=== PATIENT | female | born 1945 | race Caucasian/White ===

== ENCOUNTER 2017-03-30 08:03 | Day surgery (SDC) | payer MEDICARE ==
[~2017-03-30 08:03] MED LIST: Acetaminophen TAB* 325 MG PO PRN; Buffered Lidocaine 0.9% SYRIN* 5 ML/SYR SYRINGE INTRADERM ONE
[2017-03-30] MEDS ORDERED: Midazolam* 1 MG/ML 2 ML VIAL (2 MG) ONE (09:02)
[2017-03-30] MEDS ORDERED: fentaNYL* 50 MCG/ML 2 ML VIAL (100 MCG VIAL) ONE (09:02)
[2017-03-30 10:48] VITALS: BP 117/58
--- NOTE | 2017-03-30 10:52 | OP ---
DATE OF OPERATION: 03/30/2017. DATE OF : 1945. SURGEON: Praveen Horton M.D. PREOPERATIVE DIAGNOSIS: Cataract left eye. POSTOPERATIVE DIAGNOSIS: Cataract left eye. OPERATIVE PROCEDURE: Phacoemulsification left eye with IOL. PROCEDURE: The patient was brought to the operating room after being given 1/2% Alcaine with epinep hrine drops in the preoperative area. The eye was prepped and draped in the usual sterile fashion. Sterile drape and eyelid speculum were placed. Again, topical 1/2% Alcaine with epinephrine was gi eleuterio. A paracentesis incision was made at the 3 o'clock position with the No.75 blade. Clear cornea incision 2.2 x 2.2-mm was created at the 6 o'clock position starting at the anterior limbus using t he 2.2-mm keratome. The anterior chamber was irrigated with 0.4 mL of 1% non-preservative intracame ral lidocaine and filled with DisCoVisc. A capsulorrhexis was completed using the cystotome and the Utrata forceps. Hydrodissection was performed with balanced salt solution. The lens nucleus was re moved with the Phacoemulsification handpiece without incident. Cortex was removed with the irrigati on-aspiration handpiece. The capsular bag was re-inflated using DisCoVisc and an SN60WF 19.5 implan t was inserted with the shooter. The irrigation-aspiration handpiece was used to remove all residua l DisCoVisc. The eye was refilled with balanced salt solution and the wound checked and found to be watertight. Topical Maxitrol drops were given. [id number]/[facility] #: [id number]
[2017-03-30] MEDS ORDERED: Lidocaine 2% EPI 1:200000 MPF* 20 ML VIAL ONE (13:27)
[2017-03-30] MEDS ORDERED: Cyclopentolate 1% OPTH.SOL* 2 ML BTL ONE (13:27)
[2017-03-30] MEDS ORDERED: Povidone Iodine 5% OPTH* 30 ML BTL ONE (13:27)
[2017-03-30] MEDS ORDERED: Phenylephrine 2.5% OPTH.SOL* 2 ML BTL ONE (13:27)
[2017-03-30] MEDS ORDERED: Proparacaine 0.5% OPHTH.SOL* 15 ML BTL ONE (13:27)
[2017-03-30] MEDS ORDERED: acetaZOLAMIDE TAB* 250 MG ONE (13:27)
[2017-03-30] MEDS ORDERED: Flurbiprofen 0.03% OPTH.SOL* 2.5 ML BTL ONE (13:27)
[2017-03-30] MEDS ORDERED: Buffered Lidocaine 0.9% SYRIN* 5 ML/SYR SYRINGE ONE (13:27)
[2017-03-30] MEDS ORDERED: Neomycin/Polymy/Dex OPTH.SUSP* MAXITROL 0.1% 5 ML ONE (13:27)
[2017-03-30] MEDS ORDERED: Lidocaine 1% MPF* 2 ML VIAL ONE (13:27)
== END 2017-03-30 10:49 | disposition home or self-care (01) ==
LOC: OREAST 08:03
PROVIDERS: ATTEND Specialist
DX: H25.12 Age-related nuclear cataract, left eye (principal); E11.9 Type 2 diabetes mellitus without complications; Z79.84 Long term (current) use of oral hypoglycemic drugs; J44.9 Chronic obstructive pulmonary disease, unspecified; I11.0 Hypertensive heart disease with heart failure; I50.20 Unspecified systolic (congestive) heart failure; E78.5 Hyperlipidemia, unspecified
CPT/HCPCS: A9270-GY; J2250; J3010; V2632

== ENCOUNTER 2018-09-11 18:26 | Inpatient (IN) | payer MEDICARE ==
[2018-09-11] MEDS ORDERED: NS 0.9% 500 ML* 500 ML IV ONE (19:00)
[2018-09-11] MEDS ORDERED: Ondansetron INJ* 2 MG/ML VIAL IV ONE (19:00)
[2018-09-11 19:21] LABS: ABS Basophils 0.1 10^3/ul (0-0.2); ABS Eosinophils 0 10^3/ul (0-0.6); ABS Lymphocytes 0.8 10^3/ul (1.0-4.8); ABS Monocytes 0.2 10^3/ul (0-0.8); ABS Neutrophils 9.9 10^3/ul (1.5-7.7); ABS Nucleated RBC 0 10^3/ul; Eosinophil % 0.1 %; Hematocrit 40 % (35-47); Hemoglobin 13.2 g/dl (12.0-16.0); Mean Corpuscular HGB Conc 33 g/dl (31-36); Mean Corpuscular Hemoglobin 28 pg (27-31); Mean Corpuscular Volume 85 fL (80-97); Mean Platelet Volume 8.5 fL (7.4-10.4); Nucleated Red Blood Cells % 0; Platelet Count 208 10^3/ul (150-450); Red Blood Count 4.77 10^6/ul (4.00-5.40); Red Cell Distribution Width 15 % (10.5-15)
[2018-09-11 19:35] LABS: Albumin 4.2 g/dL (3.2-5.2); Albumin/Globulin Ratio 1.2 (1-3); BUN/Creatinine Ratio 34.8 (8-20); C Reactive Protein 16.57 mg/L (<8.01); Calcium 9.8 mg/dL (8.6-10.3); EGFR Non-African American 62.2 (>60); Globulin 3.4 g/dL (2-4); Potassium 3.9 mmol/L (3.5-5.0); Total Bilirubin 0.3 mg/dL (0.2-1.0); Total Protein 7.6 g/dL (6.4-8.9)
--- NOTE | 2018-09-11 20:45 | ED ---
Abdominal Pain/Female - HPI Summary HPI Summary: Patient complains of sudden onset nausea vomiting, bilateral lower abdominal pain, bilateral lower back pain starting this morning. Abdominal pain described as constant, 10 out of 10. Back pain described as constant, 9 out of 10. 7 episodes of vomiting today. Unable to tolerate by mouth fluids or food. Denies trauma, fever, cough, sore throat, CP, SOB, diarrhea, change in urine, change in BM. Medical history is DM,, COPD, CHF, arthritis, periumbilical hernia. Abdominal surgical history is none. Patient states she took her medications today, and vomited about an hour later. DM controlled without insulin, using metformin, bydureon, acarbose. Patient states allergic to codeine and morphine, makes her hallucinate. Patient states she took Tylenol at home with no relief. Patient on O2 at 2L 24 7. - History of Current Complaint Chief Complaint: EDAbdPain Stated Complaint: VOMITING/BACK PAIN Time Seen by Provider: 09/11/18 18:57 Hx Obtained From: Patient Onset/Duration: Sudden Onset Timing: Constant Severity Initially: Severe Severity Currently: Severe Pain Intensity: 9 Pain Scale Used: 0-10 Numeric Location: Discrete At: LUQ, Discrete At: LLQ, Suprapubic Radiates: Yes Radiates to: Back Character: Sharp, Cramping Aggravating Factor(s): Movement Alleviating Factor(s): Nothing Associated Signs and Symptoms: Positive: Back Pain, Decreased Appetite, Nausea, Vomiting Allergies/Adverse Reactions: Allergies Allergy/AdvReac Type Severity Reaction Status Date / Time gadobenic acid Allergy Rash And Verified 09/11/18 19:47 [From Multihance] Itching Iodinated Contrast- Oral and Allergy Hives Verified 09/11/18 18:52 IV Dye codeine AdvReac Hallucinati Verified 09/11/18 19:47 ons morphine AdvReac Hallucinati Verified 09/11/18 19:47 ons prednisone AdvReac Shakes Verified 09/11/18 19:47 tetracycline AdvReac Shakes Verified 09/11/18 19:47 PMH/Surg Hx/FS Hx/Imm Hx Endocrine/Hematology History: Reports: Hx Diabetes - ON DAILY MEDS, Hx Anemia Denies: Hx Thyroid Disease Cardiovascular History: Reports: Hx Congestive Heart Failure - 09/2013, NO Sx SINCE, Hx Hypercholesterolemia, Hx Hypertension, Other Cardiovascular Problems/ Disorders - Hx HTN Denies: Hx Pacemaker/ICD Respiratory History: Reports: Hx Asthma - PRN INHALER, USE OXYGEN 2L NC AT HOME , Hx Chronic Obstructive Pulmonary Disease (COPD), Hx Pneumonia, Hx Sleep Apnea - CPAP, Other Respiratory Problems/Disorders - copd, home 02 GI History: Denies: Hx Ulcer, Other GI Disorders History: Reports: Other Problems/Disorders - Hx intermittent incontinence Musculoskeletal History: Reports: Hx Arthritis - RT KNEE, Hx Orthopedic Injury - RIGHT HUMERAL FRACTURE WITH REPAIR, Other Musculoskeletal History - cellulitus le Sensory History: Reports: Hx Cataracts - BILATERAL Denies: Hx Contacts or Glasses, Hx Hearing Aid Opthamlomology History: Reports: Hx Cataracts - BILATERAL Denies: Hx Contacts or Glasses Neurological History: Denies: Other Neuro Impairments/Disorders Psychiatric History: Reports: Hx Anxiety - prn meds, Hx Depression Denies: Hx Panic Disorder - Cancer History Hx Chemotherapy: No Hx Radiation Therapy: No - Surgical History Surgery Procedure, Year, and Place: 2004 Carpel tunnel bilat hands. 2008 &2016 Cataract surgery right eye & LT [facility]. 03/2013-[facility] - right arm internal fixation s/p humeral fx. AND EXTERNAL STITCHES ON HEAD -FROM FALL Hx Anesthesia Reactions: No - Immunization History Date of Tetanus Vaccine: Unk Date of Influenza Vaccine: 07/01 Infectious Disease History: Yes Infectious Disease History: Reports: Hx Clostridium Difficile, Hx of Known/ Suspected MRSA - pt states she had MRSA at [facility] Denies: Hx Hepatitis, Hx Human Immunodeficiency Virus (HIV), Traveled Outside the in Last 30 Days - Social History Alcohol Use: None Substance Use Type: Reports: None Smoking Status (MU): Never Smoked Tobacco Have You Smoked in the Last Year: No Review of Systems Constitutional: Negative Eyes: Negative ENT: Negative Cardiovascular: Negative Respiratory: Negative Positive: Abdominal Pain, Vomiting, Nausea Genitourinary: Negative Musculoskeletal: Negative Skin: Negative Neurological: Negative Psychological: Normal All Other Systems Reviewed And Are Negative: Yes Physical Exam - Summary Physical Exam Summary: Tenderness to palpation of abdomen in left and right lower quadrants as well as suprapubically. Tender to palpation right upper quadrant with positive Orourke' s. No tenderness to palpation of lower back bilaterally. Physical exam otherwise unremarkable. Sounds clear to auscultation bilaterally. Patient has baseline peripheral edema. Triage Information Reviewed: Yes Vital Signs On Initial Exam: Initial Vitals Temp Pulse Resp BP Pulse Ox 97.6 F 94 24 153/60 95 09/11/18 18:30 09/11/18 18:30 09/11/18 18:30 09/11/18 18:30 09/11/18 18:30 Vital Signs Reviewed: Yes Appearance: Positive: Well-Appearing Skin: Positive: Warm Head/Face: Positive: Normal Head/Face Inspection Eyes: Positive: Normal ENT: Positive: Normal ENT inspection Neck: Positive: Supple Respiratory/Lung Sounds: Positive: Clear to Auscultation Cardiovascular: Positive: Normal Abdomen Description: Positive: Other: Musculoskeletal: Positive: Normal Neurological: Positive: Normal Psychiatric: Positive: Normal AVPU Assessment: Alert - Emanuel Coma Scale Best Eye Response: 4 - Spontaneous Best Motor Response: 6 - Obeys Commands Best Verbal Response: 5 - Oriented Coma Scale Total: 15 Diagnostics - Vital Signs Vital Signs Temp Pulse Resp BP Pulse Ox 09/11/18 19:06 58 143/66 97 09/11/18 19:00 57 93 09/11/18 18:48 53 143/66 97 09/11/18 18:46 55 94 09/11/18 18:30 97.6 F 94 24 153/60 95 - Laboratory Lab Results: Lab Results 09/11/18 09/11/18 09/11/18 Range/Units 19:12 19:12 19:12 WBC 11.0 H (3.5-10.8) 10^3/ul RBC 4.77 (4.00-5.40) 10^6/ul Hgb 13.2 (12.0-16.0) g/dl Hct 40 (35-47) % MCV 85 (80-97) fL MCH 28 (27-31) pg MCHC 33 (31-36) g/dl RDW 15 (10.5-15) % Plt Count 208 (150-450) 10^3/ul MPV 8.5 (7.4-10.4) fL Neut % (Auto) 90.1 % Lymph % (Auto) 7.0 % [place] % (Auto) 2.1 % Eos % (Auto) 0.1 % Baso % (Auto) 0.7 % Absolute Neuts (auto) 9.9 H (1.5-7.7) 10^3/ul Absolute Lymphs (auto) 0.8 L (1.0-4.8) 10^3/ul Absolute Monos (auto) 0.2 (0-0.8) 10^3/ul Absolute Eos (auto) 0 (0-0.6) 10^3/ul Absolute Basos (auto) 0.1 (0-0.2) 10^3/ul Absolute Nucleated RBC 0 10^3/ul Nucleated RBC % 0 VBG pH (7.32-7.43) VBG pCO2 (41-51) mmHg VBG pO2 (35-45) mmHg VBG HCO3 (24-28) mmol/L VBG O2 Saturation (70-80) % VBG Base Excess (0.0-4.0) mmol/L Sodium 139 (135-145) mmol/L Potassium 3.9 (3.5-5.0) mmol/L Chloride 100 L (101-111) mmol/L Carbon Dioxide 26 (22-32) mmol/L Anion Gap 13 H (2-11) mmol/L BUN 31 H (6-24) mg/dL Creatinine 0.89 (0.51-0.95) mg/dL Est GFR ( Amer) 75.2 (>60) Est GFR (Non-Af Amer) 62.2 (>60) BUN/Creatinine Ratio 34.8 H (8-20) Glucose 207 H (70-100) mg/dL Lactic Acid 3.7 H* (0.5-2.0) mmol/L Calcium 9.8 (8.6-10.3) mg/dL Total Bilirubin 0.30 (0.2-1.0) mg/dL AST 18 (13-39) U/L ALT 14 (7-52) U/L Alkaline Phosphatase 72 (34-104) U/L C-Reactive Protein 16.57 H (<8.01) mg/L Total Protein 7.6 (6.4-8.9) g/dL Albumin 4.2 (3.2-5.2) g/dL Globulin 3.4 (2-4) g/dL Albumin/Globulin Ratio 1.2 (1-3) Lipase 13 (11.0-82.0) U/L 12/24/18 Range/Units 20:18 WBC (3.5-10.8) 10^3/ul RBC (4.00-5.40) 10^6/ul Hgb (12.0-16.0) g/dl Hct (35-47) % MCV (80-97) fL MCH (27-31) pg MCHC (31-36) g/dl RDW (10.5-15) % Plt Count (150-450) 10^3/ul MPV (7.4-10.4) fL Neut % (Auto) % Lymph % (Auto) % [place] % (Auto) % Eos % (Auto) % Baso % (Auto) % Absolute Neuts (auto) (1.5-7.7) 10^3/ul Absolute Lymphs (auto) (1.0-4.8) 10^3/ul Absolute Monos (auto) (0-0.8) 10^3/ul Absolute Eos (auto) (0-0.6) 10^3/ul Absolute Basos (auto) (0-0.2) 10^3/ul Absolute Nucleated RBC 10^3/ul Nucleated RBC % VBG pH 7.31 L (7.32-7.43) VBG pCO2 54 H (41-51) mmHg VBG pO2 < 38.0 (35-45) mmHg VBG HCO3 23.8 L (24-28) mmol/L VBG O2 Saturation 56.3 L (70-80) % VBG Base Excess 0.0 (0.0-4.0) mmol/L Sodium (135-145) mmol/L Potassium (3.5-5.0) mmol/L Chloride (101-111) mmol/L Carbon Dioxide (22-32) mmol/L Anion Gap (2-11) mmol/L BUN (6-24) mg/dL Creatinine (0.51-0.95) mg/dL Est GFR ( Amer) (>60) Est GFR (Non-Af Amer) (>60) BUN/Creatinine Ratio (8-20) Glucose (70-100) mg/dL Lactic Acid (0.5-2.0) mmol/L Calcium (8.6-10.3) mg/dL Total Bilirubin (0.2-1.0) mg/dL AST (13-39) U/L ALT (7-52) U/L Alkaline Phosphatase (34-104) U/L C-Reactive Protein (<8.01) mg/L Total Protein (6.4-8.9) g/dL Albumin (3.2-5.2) g/dL Globulin (2-4) g/dL Albumin/Globulin Ratio (1-3) Lipase (11.0-82.0) U/L Result Diagrams: 09/11/18 19:12 09/11/18 19:12 Lab Statement: Any lab studies that have been ordered have been reviewed, and results considered in the medical decision making process. - CT ab/pel wo CT Interpretation Completed By: Radiologist Summary of CT Findings: Large left paracentral ventral hernia containing fluid and a partially dilated segment of transverse colon with possible areas of pneumatosis. Findings consistent with coagulation. No evidence of perforation. Transverse colonic obstruction at the level of large ventral hernia containing segment of transverse colon with possible pneumatosis no evidence of perforation cholelithiasis. No evidence of cholecystitis. Abdominal Pain Fem Course/Dx - Course Course Of Treatment: Patient complains of sudden onset nausea vomiting, bilateral lower abdominal pain, bilateral lower back pain starting this morning. Abdominal pain described as constant, 10 out of 10. Back pain described as constant, 9 out of 10. 7 episodes of vomiting today. Unable to tolerate by mouth fluids or food. Denies trauma, fever, cough, sore throat, CP , SOB, diarrhea, change in urine, change in BM. Medical history is DM,, COPD, CHF, arthritis, periumbilical hernia. Abdominal surgical history is none. Patient states she took her medications today, and vomited about an hour later. DM controlled without insulin, using metformin, bydureon, acarbose. Patient states allergic to codeine and morphine, makes her hallucinate. Patient states she took Tylenol at home with no relief. Patient on O2 at 2L 24 7. Physical exam:Tenderness to palpation of abdomen in left and right lower quadrants as well as suprapubically. Tender to palpation right upper quadrant with positive Orourke's. No tenderness to palpation of lower back bilaterally. Physical exam otherwise unremarkable. Sounds clear to auscultation bilaterally. Patient has baseline peripheral edema. Patient initially refused morphine orthopedics due to tendency to hallucinate on these. Patient returned Tylenol. Advised patient toradol not a good option considering possible need for surgery, history of hypertension. Patient later asked for half dose of morphine. Vital signs within normal limits and stable. WBC 11.0. PH 7.31 with likely respiratory acidosis. Lactic 0.7. BUN/creatinine ratio of 34 at patient baseline. Anion gap 13. Glucose 207. Ultrasound gallbladder negative for acute process. CT abdomen pelvis without contrast positive for carcinoid hernia , bowel obstruction with possible pneumatosis. [place] fluids administered. Pending evaluation by surgery. - Diagnoses Provider Diagnoses: Incarcerated hernia, Bowel obstruction, UTI (urinary tract infection) Discharge - Sign-Out/Discharge Documenting (check all that apply): Patient Departure - Discharge Plan Condition: Stable Disposition: ADMITTED TO [facility] Referrals: Aquiles Wilson DO [Primary Care Provider] - - Billing Disposition and Condition Condition: STABLE Disposition: Admitted to [facility]
[2018-09-11] MEDS ORDERED: Morphine VIAL* 10 MG/ML 1 ML VIAL IV ONE ×2 (20:47→21:31)
[2018-09-11] MEDS ORDERED: Morphine VIAL* 4 MG/ML VIAL (1 ml vial) IV ONE ×2 (20:48→21:33)
[2018-09-11 20:53] LABS: Urine Appearance Cloudy; Urine Bacteria 1+ (Absent); Urine Bilirubin Negative (Negative); Urine Blood Negative (Negative); Urine Color Amber; Urine Glucose Negative (Negative); Urine Ketones Negative (Negative); Urine Nitrite Negative (Negative); Urine Protein 2+(100 mg/dL) (Negative); Urine Red Blood Cell Trace(0-2/hpf) (Absent); Urine Specific Gravity 1.025 (1.010-1.030); Urine Urobilinogen Negative (Negative); Urine White Blood Cell 3+(>20/hpf) (Absent)
[2018-09-11] MEDS ORDERED: NS 0.9% 1000 ML* 1,000 ML IV ONE (21:07)
[2018-09-11] MEDS ORDERED: Piperacillin/Tazobac ADVAN(*) 3.375 GM in NS 0.9% 100 ML* 100 ML IVPB ONE (21:07)
[2018-09-11] MEDS ORDERED: Morphine VIAL* 4 MG/ML VIAL (1 ml vial) ONE (21:32)
[2018-09-11] MEDS ORDERED: Midazolam* 1 MG/ML 5 ML VIAL (5 MG) ONE (22:24)
[2018-09-11] MEDS ORDERED: Atracurium* 10 MG/ML 10 ML VIAL ONE (22:24)
[2018-09-11] MEDS ORDERED: KETAMINE HCL* 50 MG/ML 10 ML VIAL ONE (22:24)
[2018-09-11] MEDS ORDERED: fentaNYL* 50 MCG/ML 5 ML VIAL (250 MCG VIAL) ONE (22:24)
[2018-09-11] MEDS ORDERED: ceFAZolin 2 GM PREMIX in ORs 2 GM/50 ML BAG IVPB ONE (22:46)
[2018-09-11] MEDS ORDERED: ceFAZolin 1 GM ADVAN(*) 1 GM ADDV.VIAL IVPB ONE (22:46)
[2018-09-11] MEDS ORDERED: Heparin VIAL(*) 5000 UNITS/ML VIAL (FIVE THOUSAND) ONE (22:53)
[2018-09-11] MEDS: Heparin VIAL(*) 5000 UNITS/ML VIAL (FIVE THOUSAND) SUBCUT SCH (23:00)
[2018-09-11] MEDS ORDERED: Insulin REGULAR(*) 1 UNITS UNIT ONE ×2 (23:40→23:50)
[2018-09-11] MEDS ORDERED: Bupivacaine 0.25% EPI 200,000* 30 ML SDV ONE (23:40)
[2018-09-12] MEDS ORDERED: PROCHLORPERAZINE INJ 5 MG/ML 2 ML VIAL IV PRN (00:14)
[2018-09-12] MEDS ORDERED: fentaNYL* 50 MCG/ML 2 ML VIAL (100 MCG VIAL) IV PRN (00:14)
[2018-09-12] MEDS ORDERED: HYDROmorphone INJ1* 1 MG/ML SYRINGE IV PRN (00:14)
[2018-09-12] MEDS ORDERED: Naloxone* 0.4 MG/ML 1 ML VIAL IV PRN (00:14)
[2018-09-12] MEDS ORDERED: DiMENhydriNATE IV* 50 MG/ML VIAL IV PUSH PRN (00:14)
[2018-09-12] MEDS ORDERED: Phenylephrine INJ* 10 MG/ML 1 ML VIAL (10 MG) ONE (00:37)
[2018-09-12] MEDS ORDERED: Norepinephrine VIAL* 1 MG/ML 4 ML VIAL ONE (00:37)
[2018-09-12] MEDS ORDERED: Propofol* 10 MG/ML 20 ML BTL ONE (00:37)
[2018-09-12] MEDS ORDERED: Neostigmine Methylsulfate* 1 MG/ML 10 ML VIAL (1 mg/ml) ONE (00:37)
[2018-09-12] MEDS ORDERED: Succinylcholine* 20 MG/ML 10 ML VIAL ONE (00:37)
[2018-09-12] MEDS ORDERED: Ondansetron INJ* 2 MG/ML VIAL ONE (00:37)
[2018-09-12] MEDS ORDERED: PROCHLORPERAZINE INJ 5 MG/ML 2 ML VIAL ONE (00:37)
[2018-09-12] MEDS ORDERED: Glycopyrrolate IV* 0.2 MG/ML 1 ML VIAL ONE (00:37)
[2018-09-12] MEDS ORDERED: Ketorolac INJ* 15 MG/ML 1 ML VIAL IV PUSH PRN (01:11)
[2018-09-12] MEDS ORDERED: Ondansetron INJ* 2 MG/ML VIAL IV PRN (01:11)
--- NOTE | 2018-09-12 01:59 | HP ---
CC: Tim Fitzpatrick MD; Dr. Aquiles Wilson HISTORY AND PHYSICAL: DATE OF ADMISSION: 09/11/18 CHIEF COMPLAINT: Abdominal pain, nausea and vomiting. HISTORY: Ms. Menendez is a 73-year-old female who has had a known ventral hernia for many years, who earlier today had onset of increasing abdominal pain, nausea and vomiting. This got worse through until she apparently presented to the emergency room. She had no antecedent accident, injury, or trauma and has otherwise been in her usual state of health. PAST MEDICAL HISTORY: Significant for: 1. Diabetes. 2. Bout of CHF in the past. 3. COPD. She uses home oxygen. 4. She has morbid obesity and some anxiety. 5. She also has a history of some antral gastritis and anemia in the past that has resolved. PAST SURGICAL HISTORY: Previous surgeries include: 1. Cataracts. 2. Carpal tunnel. 3. Right humeral fracture. 4. She has never had abdominal surgery. MEDICATIONS: Include: 1. Metformin 1000 mg p.o. q.a.m., 1500 mg p.o. q.p.m. 2. Albuterol inhaler two puffs q.4 p.r.n. 3. Prozac 40 mg p.o. daily. 4. Tylenol 325 p.o. q.4 p.r.n. 5. Xyzal 5 mg p.o. q.a.m. 6. Lasix 20 mg p.o. q.a.m. 7. Precose 100 mg p.o. t.i.d. 8. Multivitamin one p.o. daily. 9. Vitamin D 1000 units p.o. daily. 10. Bydureon 2 mg daily. ALLERGIES: Include IODINATED CONTRAST and TETRACYCLINE. She has also had some hallucinations from M ORPHINE and CODEINE. FAMILY HISTORY: Noncontributory. No bleeding tendencies or anesthesia reactions. SOCIAL HISTORY: She is here with her daughter. She is . She is a nonsmoker and nondrinker. Does not use any drugs or illicit substances. REVIEW OF SYSTEMS: Multisystem review reveals history of congestive heart failure. She had volume ov erload and needed acute Lasix about 6 years ago. She says they got 70 pounds off of her from taking off fluid. She has been on Lasix ever since and has not had any recurrences. She does have a histor y of COPD, although she has not been a smoker. She has been on inhalers as well. She has diabetes a nd is on medications for that. She has never had thyroid disease. She has never had heart attack, c hest pain, angina pain or the like. She has a history of antral gastritis, had anemia in the past fr om that, but that resolved with medication and she has been fine since. She has not had any hepatobi liary disease. There is no history of kidney stones or urinary problems or gynecologic problems. e does have a history of anxiety and depression. She has no neuromuscular problems. She does have t he carpal tunnel and humeral surgery as noted above. She does not have much exercise tolerance and h as a hard time walking up a flight of stairs without getting very winded. She does use oxygen at [facility]. PHYSICAL EXAMINATION GENERAL: She is a well-developed, well-nourished morbidly obese female consistent with stated age. She does look uncomfortable. VITAL SIGNS: Temperature is 97.3, pulse 59 and regular, respirations 18 and unlabored, O2 saturation 98%, blood pressure is 147/73. She is 5 feet 3 inches, 286 pounds with a BMI of 51. NECK: Supple without any adenopathy. LUNGS: Clear bilaterally. Sounds are somewhat distant. HEART: Regular. No abnormal sounds. ABDOMEN: Morbidly obese. There is a melon-sized ventral hernia just a little to the left and below the umbilicus. This is moderately tender and despite extensive manipulation, I am unable to get it r educed. There are no scars noted. EXTREMITIES: Extremities are quite obese, little bit of chronic edema. No cellulitis or inflammatio n. SKIN: Warm and well perfused. She is not diaphoretic. She is not jaundiced. DIAGNOSTIC STUDIES/LAB DATA: Laboratory studies show white blood count at 11,000 with normal hemogl obin, normal differential. Her electrolytes are relatively normal. She does have blood sugar elevat ed at 207. Her lactic acid is 3.7. Her liver chemistries are normal. Renal function is normal. Ur inalysis shows some white blood cells, but not very impressive. She has had a CT scan of the abdomen , which shows a large ventral hernia, which by my estimation is at least 20 cm across and is causing obstruction of the transverse colon. The defect appears to be approximately 5 cm across and is just a little below into the left of the umbilicus. There is some evidence of pneumatosis in the bowel wa ll. There is no portal venous air and no free fluid. There is cholelithiasis without evidence of ch olecystitis. IMPRESSION AND PLAN: Morbidly obese female with multiple comorbidities with incarcerated ventral her cristin with large bowel obstruction. I have discussed the options with her and I think the only viable option here is to repair the hernia probably with mesh as an emergent surgery. She understands that this is with substantial risk given her comorbidities, but that there are no other options that will likely prevent the bowel from going on to strangulation and ultimate sepsis. So, I recommend that we go to the operating room tonight. She understands the procedure, the rationale, the risks and expected recovery and agrees to proceed in the fashion outlined. I have discussed the case with the hospitalist service, who will be taken c are of her medical care throughout the hospitalization. [id number]/[facility] [place] #: [id number]
[2018-09-12 05:54] LABS: ABS Basophils 0 10^3/ul (0-0.2); ABS Eosinophils 0 10^3/ul (0-0.6); ABS Lymphocytes 0.8 10^3/ul (1.0-4.8); ABS Monocytes 0.9 10^3/ul (0-0.8); ABS Neutrophils 16.5 10^3/ul (1.5-7.7); ABS Nucleated RBC 0 10^3/ul; Eosinophil % 0 %; Hematocrit 38 % (35-47); Hemoglobin 12.5 g/dl (12.0-16.0); Lymphocyte % 4.4 %; Mean Corpuscular HGB Conc 33 g/dl (31-36); Mean Corpuscular Hemoglobin 28 pg (27-31); Mean Corpuscular Volume 86 fL (80-97); Mean Platelet Volume 8.5 fL (7.4-10.4); Nucleated Red Blood Cells % 0.1; Platelet Count 198 10^3/ul (150-450); Red Blood Count 4.47 10^6/ul (4.00-5.40); Red Cell Distribution Width 15 % (10.5-15); White Blood Count 18.2 10^3/ul (3.5-10.8)
[2018-09-12] MEDS: HYDROmorphone INJ* 0.5 MG/0.5 ML SYRINGE IV PRN ×3 (05:58→21:17)
[2018-09-12] MEDS: Heparin VIAL(*) 5000 UNITS/ML VIAL (FIVE THOUSAND) SUBCUT SCH ×3 (05:58→21:18)
[2018-09-12 06:08] LABS: BUN/Creatinine Ratio 35.8 (8-20); Calcium 8.8 mg/dL (8.6-10.3); EGFR Non-African American 57.7 (>60); Potassium 4.2 mmol/L (3.5-5.0)
[2018-09-12] MEDS: Lactated Ringers 1000 ML Bag* 1,000 ML IV SCH ×2 (08:08→18:24)
--- NOTE | 2018-09-12 08:23 | CONSULT ---
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 pt also had n/v. came for eval because her pain has been excruciating. ct of abd showed incarcerated ventral hernia ---> pt has hx of back pain and has to walk with a walker ---> says she can walk about half of mile with her walker if her back pain is not the issue. ( could only walk 500 feet due to her concurrent back pain. ) function mets> 4. intiial ekg did not reveal any acute change. pt is optimized for emergent surgery. phx type ii dm copd on 2 liter/min oxygen 24/7 morbid obesity thao on cpap ( she was not sure of the setting ) heart murmur ? hx of pericardial effusion ---> was treated with lasix with no recurrence pshx s/p b/l carpal tunnel surgery s/p r shoulder orif s/p cataracts extraction b/l social hx never cig smoker but has sig exposure to 2nd hand smoke no etoh walks with a walker fhx denied any htn/dm/cad/cva when asked Review of Systems - Measurements Intake and Output: Intake and Output Last 24 Hours 09/10/18 09/11/18 09/12/18 09/13/18 06:59 06:59 06:59 06:59 Intake Total 834 Output Total 200 70 Balance 634 -70 Weight 293 lb 14.019 oz Intake: IV Fluids 834 LR 334 Output: Qiu 200 70 - Review of Systems General Comments: pertinenet as per hpi Objective Active Medications: Heparin Sodium (Porcine) (Heparin Vial(*)) 5,000 units SUBCUT Q8HR [facility] Last Admin: 09/12/18 05:58 Dose: 5,000 units Hydromorphone HCl (Dilaudid Inj*) 0.5 mg IV Q1H PRN PRN Reason: Pain - severe Last Admin: 09/12/18 05:58 Dose: 0.5 mg Lactated Ringer's (Lactated Ringers 1000 Ml Bag*) 1,000 mls @ 100 mls/hr IV PER RATE [facility] Last Admin: 09/12/18 08:08 Dose: 100 mls/hr Ketorolac Tromethamine (Toradol Inj*) 15 mg IV PUSH Q6H PRN PRN Reason: PAIN Stop: 09/14/18 01:15 Ondansetron HCl (Zofran Inj*) 4 mg IV Q4H PRN PRN Reason: NAUSEA/VOMITING Vital Signs - 8 hr 09/12/18 09/12/18 09/12/18 00:59 01:14 01:20 Temperature 97.4 F 98.1 F Pulse Rate 55 60 Respiratory 13 20 20 Rate Blood Pressure 145/59 185/85 (mmHg) O2 Sat by Pulse 93 92 Oximetry 09/12/18 09/12/18 09/12/18 01:25 01:28 01:30 Temperature Pulse Rate 52 Respiratory 20 20 Rate Blood Pressure 154/86 (mmHg) O2 Sat by Pulse 96 95 Oximetry 09/12/18 09/12/18 09/12/18 01:53 01:55 02:00 Temperature Pulse Rate 52 51 55 Respiratory 22 18 15 Rate Blood Pressure 145/69 147/71 (mmHg) O2 Sat by Pulse 96 87 93 Oximetry 09/12/18 09/12/18 09/12/18 02:15 02:30 02:45 Temperature Pulse Rate 55 57 59 Respiratory 16 14 20 Rate Blood Pressure 136/66 147/72 139/74 (mmHg) O2 Sat by Pulse 95 94 97 Oximetry 09/12/18 09/12/18 09/12/18 03:00 03:01 03:15 Temperature Pulse Rate 59 59 60 Respiratory 21 18 15 Rate Blood Pressure 142/65 145/69 (mmHg) O2 Sat by Pulse 95 95 97 Oximetry 09/12/18 09/12/18 09/12/18 03:30 03:45 03:48 Temperature 99.7 F Pulse Rate 59 61 Respiratory 17 16 Rate Blood Pressure 146/73 141/72 (mmHg) O2 Sat by Pulse 97 97 Oximetry 09/12/18 09/12/18 09/12/18 04:00 04:01 04:15 Temperature Pulse Rate 61 59 61 Respiratory 17 22 13 Rate Blood Pressure 143/71 139/74 (mmHg) O2 Sat by Pulse 95 96 95 Oximetry 09/12/18 09/12/1809/12/18 04:30 04:45 05:00 Temperature Pulse Rate 61 62 62 Respiratory 24 31 26 Rate Blood Pressure 141/70 141/72 137/71 (mmHg) O2 Sat by Pulse 95 94 94 Oximetry 09/12/18 09/12/18 09/12/18 05:01 05:15 05:30 Temperature Pulse Rate 61 63 63 Respiratory 17 29 24 Rate Blood Pressure 135/66 130/69 (mmHg) O2 Sat by Pulse 95 95 92 Oximetry 09/12/18 09/12/18 09/12/18 05:45 05:58 06:00 Temperature Pulse Rate 64 65 Respiratory 23 21 23 Rate Blood Pressure 147/72 146/74 (mmHg) O2 Sat by Pulse 93 92 Oximetry 09/12/18 09/12/18 09/12/18 06:01 07:19 08:02 Temperature 99.1 F Pulse Rate 64 Respiratory 17 22 Rate Blood Pressure (mmHg) O2 Sat by Pulse 91 Oximetry Oxygen Devices in Use Now: Nasal Cannula Appearance: nad Eyes: No Scleral Icterus, PERRLA Ears/Nose/Mouth/Throat: NL Teeth, Lips, Gums, Clear Oropharnyx, Mucous Membranes Moist Neck: NL Appearance and Movements; NL JVP, Trachea Midline, No Thyroid Enlargement, Masses Respiratory: Symmetrical Chest Expansion and Respiratory Effort, - - decreased b /s at base b/l Cardiovascular: NL Sounds; No Murmurs; No JVD Abdominal: - - very obese abd + tenderness upon the umbilical area unable to further eval due to her overall body habitus Extremities: No Edema, - - able to raise ue and le against gravity Skin: No Rash or Ulcers, - - warm to touch Neurological: Alert and Oriented x 3, NL Sensation, NL Muscle Strength and Tone Result Diagrams: 09/12/18 05:41 09/12/18 05:41 Additional Lab and Data: Lab Results 09/11/18 09/11/18 09/11/18 Range/Units 19:12 19:12 19:12 WBC 11.0 H (3.5-10.8) 10^3/ul RBC 4.77 (4.00-5.40) 10^6/ul Hgb 13.2 (12.0-16.0) g/dl Hct 40 (35-47) % MCV 85 (80-97) fL MCH 28 (27-31) pg MCHC 33 (31-36) g/dl RDW 15 (10.5-15) % Plt Count 208 (150-450) 10^3/ul MPV 8.5 (7.4-10.4) fL Neut % (Auto) 90.1 % Lymph % (Auto) 7.0 % [place] % (Auto) 2.1 % Eos % (Auto) 0.1 % Baso % (Auto) 0.7 % Absolute Neuts (auto) 9.9 H (1.5-7.7) 10^3/ul Absolute Lymphs (auto) 0.8 L (1.0-4.8) 10^3/ul Absolute Monos (auto) 0.2 (0-0.8) 10^3/ul Absolute Eos (auto) 0 (0-0.6) 10^3/ul Absolute Basos (auto) 0.1 (0-0.2) 10^3/ul Absolute Nucleated RBC 0 10^3/ul Nucleated RBC % 0 VBG pH (7.32-7.43) VBG pCO2 (41-51) mmHg VBG pO2 (35-45) mmHg VBG HCO3 (24-28) mmol/L VBG O2 Saturation (70-80) % VBG Base Excess (0.0-4.0) mmol/L Sodium 139 (135-145) mmol/L Potassium 3.9 (3.5-5.0) mmol/L Chloride 100 L (101-111) mmol/L Carbon Dioxide 26 (22-32) mmol/L Anion Gap 13 H (2-11) mmol/L BUN 31 H (6-24) mg/dL Creatinine 0.89 (0.51-0.95) mg/dL Est GFR ( Amer) 75.2 (>60) Est GFR (Non-Af Amer) 62.2 (>60) BUN/Creatinine Ratio 34.8 H (8-20) Glucose 207 H (70-100) mg/dL Lactic Acid 3.7 H* (0.5-2.0) mmol/L Calcium 9.8 (8.6-10.3) mg/dL Total Bilirubin 0.30 (0.2-1.0) mg/dL AST 18 (13-39) U/L ALT 14 (7-52) U/L Alkaline Phosphatase 72 (34-104) U/L C-Reactive Protein 16.57 H (<8.01) mg/L Total Protein 7.6 (6.4-8.9) g/dL Albumin 4.2 (3.2-5.2) g/dL Globulin 3.4 (2-4) g/dL Albumin/Globulin Ratio 1.2 (1-3) Lipase 13 (11.0-82.0) U/L //18 Range/Units 20:18 WBC (3.5-10.8) 10^3/ul RBC (4.00-5.40) 10^6/ul Hgb (12.0-16.0) g/dl Hct (35-47) % MCV (80-97) fL MCH (27-31) pg MCHC (31-36) g/dl RDW (10.5-15) % Plt Count (150-450) 10^3/ul MPV (7.4-10.4) fL Neut % (Auto) % Lymph % (Auto) % [place] % (Auto) % Eos % (Auto) % Baso % (Auto) % Absolute Neuts (auto) (1.5-7.7) 10^3/ul Absolute Lymphs (auto) (1.0-4.8) 10^3/ul Absolute Monos (auto) (0-0.8) 10^3/ul Absolute Eos (auto) (0-0.6) 10^3/ul Absolute Basos (auto) (0-0.2) 10^3/ul Absolute Nucleated RBC 10^3/ul Nucleated RBC % VBG pH 7.31 L (7.32-7.43) VBG pCO2 54 H (41-51) mmHg VBG pO2 < 38.0 (35-45) mmHg VBG HCO3 23.8 L (24-28) mmol/L VBG O2 Saturation 56.3 L (70-80) % VBG Base Excess 0.0 (0.0-4.0) mmol/L Sodium (135-145) mmol/L Potassium (3.5-5.0) mmol/L Chloride (101-111) mmol/L Carbon Dioxide (22-32) mmol/L Anion Gap (2-11) mmol/L BUN (6-24) mg/dL Creatinine (0.51-0.95) mg/dL Est GFR ( Amer) (>60) Est GFR (Non-Af Amer) (>60) BUN/Creatinine Ratio (8-20) Glucose (70-100) mg/dL Lactic Acid (0.5-2.0) mmol/L Calcium (8.6-10.3) mg/dL Total Bilirubin (0.2-1.0) mg/dL AST (13-39) U/L ALT (7-52) U/L Alkaline Phosphatase (34-104) U/L C-Reactive Protein (<8.01) mg/L Total Protein (6.4-8.9) g/dL Albumin (3.2-5.2) g/dL Globulin (2-4) g/dL Albumin/Globulin Ratio (1-3) Lipase (11.0-82.0) U/L Microbiology and Other Data: Microbiology 09/12/18 02:05 Nasal Screen MRSA (PCR) - Final Nasal Mrsa Not Detected EKG Data: ns 1st avb qtc is 493 Assessment/Plan - Billing Plan By Medical Problem: this is a 73 yr old wf with hx of morbid obesity thao copd on 11/04 oxygen had incarcerated ventral hernia repair. medicine was called to optimized pt for surgery and medical mgt afterwards. pt was able to be extubated and put on bipap 1. incarerated ventral hernia s/p surgery continue pain meds and zofran, abx, iv fluid as per surgery still npo surgery f/u 2. copd thao ---> asked family to bring her home cpap in case she can be titrated to her home setting - duoneb prn oxygen as per protocol 3 type ii dm - still npo on metofrmin at home----> will continue insulin ss q 6 while npo 4 elevated lactic acid level since admission was 3.7 on admission slightly increased to 4.0 - will recycle lactic acid level until it reaches normal level - continue iv abx zosyn as per surgery 5 decreased urine outpt despite of ivf ns lr 100 cc 500 cc ns given - will order echo for later need of ivf VTE PPX: heparin as per surgery Diet: npo still as per surgery Code Status: full Admission Status and Rationale:
[2018-09-12] MEDS ORDERED: Albuterol HFA INHALER* 8 gm MDI INH PRN (08:32)
[2018-09-12] MEDS ORDERED: NS 0.9% 500 ML* 500 ML IV ONE (08:37)
[2018-09-12] MEDS ORDERED: Nystatin TOP POWDER* 15 GM BTL TOPICAL PRN (08:38)
--- NOTE | 2018-09-12 09:03 | PN ---
Progress Note - Progress Note Date of Service: 09/12/18 Note: POD#1 S/P Incarcerated ventral hernia, bowel obstr. Afeb, VS noted UO borderline No N/V, thirsty Pain control good Alert and coherent, color good Breathing easy, conversant Abd obese, soft, drsg clean, sore, few BS Labs noted Impr: S/P incarc VH repair Follow labs, monitor lactic acid, hydrate Keep kinney to monitor UO Await GI fxn Other med issues per hospitalist
--- NOTE | 2018-09-12 10:55 | PN ---
Subjective Date of Service: 09/12/18 Interval History: Pain control OK. Not hungry. No new c/o. Objective Active Medications: Albuterol (Ventolin Hfa Inhaler*) 2 puff INH Q4H PRN PRN Reason: SOB/WHEEZING Albuterol/Ipratropium (Duoneb (Albuterol 2.5 Mg/Ipratropium 0.5 Mg)) 1 neb INH Q4H PRN PRN Reason: SOB/WHEEZING Heparin Sodium (Porcine) (Heparin Vial(*)) 5,000 units SUBCUT Q8HR [facility] Last Admin: 09/12/18 05:58 Dose: 5,000 units Hydromorphone HCl (Dilaudid Inj*) 0.5 mg IV Q1H PRN PRN Reason: Pain - severe Last Admin: 09/12/18 05:58 Dose: 0.5 mg Lactated Ringer's (Lactated Ringers 1000 Ml Bag*) 1,000 mls @ 100 mls/hr IV PER RATE [facility] Last Admin: 09/12/18 08:08 Dose: 100 mls/hr Insulin Human Regular (Insulin Regular(*)) 0 units SUBCUT FS Q6 ICU [facility]; Protocol Nystatin (Nystatin Top Powder*) 1 applic TOPICAL TID PRN PRN Reason: RASH Stop: 09/19/18 08:37 Ondansetron HCl (Zofran Inj*) 4 mg IV Q4H PRN PRN Reason: NAUSEA/VOMITING Vital Signs - 8 hr 09/12/18 09/12/18 09/12/18 03:00 03:01 03:15 Temperature Pulse Rate 59 59 60 Respiratory 21 18 15 Rate Blood Pressure 142/65 145/69 (mmHg) O2 Sat by Pulse 95 95 97 Oximetry 09/12/18 09/12/18 09/12/18 03:30 03:45 03:48 Temperature 99.7 F Pulse Rate 59 61 Respiratory 17 16 Rate Blood Pressure 146/73 141/72 (mmHg) O2 Sat by Pulse 97 97 Oximetry 09/12/18 09/12/18 09/12/18 04:00 04:01 04:15 Temperature Pulse Rate 61 59 61 Respiratory 17 22 13 Rate Blood Pressure 143/71 139/74 (mmHg) O2 Sat by Pulse 95 96 95 Oximetry 09/12/18 09/12/18 09/12/18 04:30 04:45 05:00 Temperature Pulse Rate 61 62 62 Respiratory 24 31 26 Rate Blood Pressure 141/70 141/72 137/71 (mmHg) O2 Sat by Pulse 95 94 94 Oximetry 09/12/18 09/12/18 09/12/18 05:01 05:15 05:30 Temperature Pulse Rate 61 63 63 Respiratory 17 29 24 Rate Blood Pressure 135/66 130/69 (mmHg) O2 Sat by Pulse 95 95 92 Oximetry 09/12/18 09/12/18 09/12/18 05:45 05:58 06:00 Temperature Pulse Rate 64 65 Respiratory 23 21 23 Rate Blood Pressure 147/72 146/74 (mmHg) O2 Sat by Pulse 93 92 Oximetry 09/12/18 09/12/18 09/12/18 06:01 06:15 06:30 Temperature Pulse Rate 64 64 67 Respiratory 17 24 27 Rate Blood Pressure 133/71 142/72 (mmHg) O2 Sat by Pulse 91 92 91 Oximetry 09/12/18 09/12/18 09/12/18 06:45 07:00 07:01 Temperature Pulse Rate 67 67 68 Respiratory 20 20 23 Rate Blood Pressure 143/72 146/66 (mmHg) O2 Sat by Pulse 93 92 93 Oximetry 09/12/18 09/12/18 09/12/18 07:15 07:19 07:30 Temperature 99.1 F Pulse Rate 67 63 Respiratory 24 15 Rate Blood Pressure 140/71 130/64 (mmHg) O2 Sat by Pulse 92 92 Oximetry 09/12/18 09/12/18 09/12/18 07:45 08:00 08:01 Temperature Pulse Rate 67 67 67 Respiratory 22 32 31 Rate Blood Pressure 126/64 136/62 (mmHg) O2 Sat by Pulse 92 91 91 Oximetry 09/12/18 09/12/18 09/12/18 08:02 08:15 08:30 Temperature Pulse Rate 66 67 Respiratory 22 26 20 Rate Blood Pressure 142/71 145/68 (mmHg) O2 Sat by Pulse 92 93 Oximetry 09/12/18 08:45 Temperature Pulse Rate 66 Respiratory 28 Rate Blood Pressure 152/69 (mmHg) O2 Sat by Pulse 91 Oximetry Oxygen Devices in Use Now: Nasal Cannula Appearance: Alert, on her R side in ICU bed, head somewhat elevated. In fair spirits. Looks comfortable at rest. Eyes: No Scleral Icterus Respiratory: Symmetrical Chest Expansion and Respiratory Effort, Clear to Auscultation, Clear to Percussion Cardiovascular: NL Sounds; No Murmurs; No JVD, RRR, No Edema, - Abdominal: - - soft, obese, mild tenderness. Diminished BS. Extremities: No Edema, No Clubbing, Cyanosis, - Skin: No Rash or Ulcers, No Nodules or Sclerosis, - Neurological: Alert and Oriented x 3, NL Sensation Result Diagrams: 09/12/18 05:41 09/12/18 05:41 Additional Lab and Data: Lab Results 09/11/18 09/11/18 09/11/18 Range/Units 19:12 19:12 19:12 WBC 11.0 H (3.5-10.8) 10^3/ul RBC 4.77 (4.00-5.40) 10^6/ul Hgb 13.2 (12.0-16.0) g/dl Hct 40 (35-47) % MCV 85 (80-97) fL MCH 28 (27-31) pg MCHC 33 (31-36) g/dl RDW 15 (10.5-15) % Plt Count 208 (150-450) 10^3/ul MPV 8.5 (7.4-10.4) fL Neut % (Auto) 90.1 % Lymph % (Auto) 7.0 % [place] % (Auto) 2.1 % Eos % (Auto) 0.1 % Baso % (Auto) 0.7 % Absolute Neuts (auto) 9.9 H (1.5-7.7) 10^3/ul Absolute Lymphs (auto) 0.8 L (1.0-4.8) 10^3/ul Absolute Monos (auto) 0.2 (0-0.8) 10^3/ul Absolute Eos (auto) 0 (0-0.6) 10^3/ul Absolute Basos (auto) 0.1 (0-0.2) 10^3/ul Absolute Nucleated RBC 0 10^3/ul Nucleated RBC % 0 VBG pH (7.32-7.43) VBG pCO2 (41-51) mmHg VBG pO2 (35-45) mmHg VBG HCO3 (24-28) mmol/L VBG O2 Saturation (70-80) % VBG Base Excess (0.0-4.0) mmol/L Sodium 139 (135-145) mmol/L Potassium 3.9 (3.5-5.0) mmol/L Chloride 100 L (101-111) mmol/L Carbon Dioxide 26 (22-32) mmol/L Anion Gap 13 H (2-11) mmol/L BUN 31 H (6-24) mg/dL Creatinine 0.89 (0.51-0.95) mg/dL Est GFR ( Amer) 75.2 (>60) Est GFR (Non-Af Amer) 62.2 (>60) BUN/Creatinine Ratio 34.8 H (8-20) Glucose 207 H (70-100) mg/dL Lactic Acid 3.7 H* (0.5-2.0) mmol/L Calcium 9.8 (8.6-10.3) mg/dL Total Bilirubin 0.30 (0.2-1.0) mg/dL AST 18 (13-39) U/L ALT 14 (7-52) U/L Alkaline Phosphatase 72 (34-104) U/L C-Reactive Protein 16.57 H (<8.01) mg/L Total Protein 7.6 (6.4-8.9) g/dL Albumin 4.2 (3.2-5.2) g/dL Globulin 3.4 (2-4) g/dL Albumin/Globulin Ratio 1.2 (1-3) Lipase 13 (11.0-82.0) U/L 09/11/18 Range/Units 20:18 WBC (3.5-10.8) 10^3/ul RBC (4.00-5.40) 10^6/ul Hgb (12.0-16.0) g/dl Hct (35-47) % MCV (80-97) fL MCH (27-31) pg MCHC (31-36) g/dl RDW (10.5-15) % Plt Count (150-450) 10^3/ul MPV (7.4-10.4) fL Neut % (Auto) % Lymph % (Auto) % [place] % (Auto) % Eos % (Auto) % Baso % (Auto) % Absolute Neuts (auto) (1.5-7.7) 10^3/ul Absolute Lymphs (auto) (1.0-4.8) 10^3/ul Absolute Monos (auto) (0-0.8) 10^3/ul Absolute Eos (auto) (0-0.6) 10^3/ul Absolute Basos (auto) (0-0.2) 10^3/ul Absolute Nucleated RBC 10^3/ul Nucleated RBC % VBG pH 7.31 L (7.32-7.43) VBG pCO2 54 H (41-51) mmHg VBG pO2 < 38.0 (35-45) mmHg VBG HCO3 23.8 L (24-28) mmol/L VBG O2 Saturation 56.3 L (70-80) % VBG Base Excess 0.0 (0.0-4.0) mmol/L Sodium (135-145) mmol/L Potassium (3.5-5.0) mmol/L Chloride (101-111) mmol/L Carbon Dioxide (22-32) mmol/L Anion Gap (2-11) mmol/L BUN (6-24) mg/dL Creatinine (0.51-0.95) mg/dL Est GFR ( Amer) (>60) Est GFR (Non-Af Amer) (>60) BUN/Creatinine Ratio (8-20) Glucose (70-100) mg/dL Lactic Acid (0.5-2.0) mmol/L Calcium (8.6-10.3) mg/dL Total Bilirubin (0.2-1.0) mg/dL AST (13-39) U/L ALT (7-52) U/L Alkaline Phosphatase (34-104) U/L C-Reactive Protein (<8.01) mg/L Total Protein (6.4-8.9) g/dL Albumin (3.2-5.2) g/dL Globulin (2-4) g/dL Albumin/Globulin Ratio (1-3) Lipase (11.0-82.0) U/L Microbiology and Other Data: Microbiology 09/12/18 02:05 Nasal Screen MRSA (PCR) - Final Nasal Mrsa Not Detected EKG Data: ns 1st avb qtc is 493 Assess/Plan/Problems-Billing Plan By Medical Problem: this is a 73 yr old wf with hx of morbid obesity junior copd on 24/7 oxygen had incarcerated ventral hernia repair. medicine was called to optimized pt for surgery and medical mgt afterwards. pt was able to be extubated and put on bipap 1. incarerated ventral hernia s/p surgery continue pain meds and zofran, abx, iv fluid as per surgery still npo surgery f/u 2. copd junior ---> asked family to bring her home cpap in case she can be titrated to her home setting - duoneb prn oxygen as per protocol 3 type ii dm - still npo on metofrmin at home----> will continue insulin ss q 6 while npo 4 elevated lactic acid level since admission was 3.7 on admission slightly increased to 4.0 - will recycle lactic acid level until it reaches normal level - continue iv abx zosyn as per surgery 5 decreased urine outpt despite of ivf ns lr 100 cc 500 cc ns given - will order echo for later need of ivf VTE PPX: heparin as per surgery Diet: npo still as per surgery Code Status: full Admission Status and Rationale: - Patient Problems (1) Diabetes Current Visit: Yes Status: Acute Code(s): E11.9 - TYPE 2 DIABETES MELLITUS WITHOUT COMPLICATIONS SNOMED Code(s): 81670872 Comment: Continue Lispro by SS. As she will not be resuming metformin, will assess for another oral regimen when she is on a full diet. (2) Lactic acidosis Current Visit: Yes Status: Acute Code(s): E87.2 - ACIDOSIS SNOMED Code(s) : 79032662 Comment: Possible due to metformin, will list as advers reaction. (3) JUNIOR (obstructive sleep apnea) Current Visit: Yes Status: Acute Code(s): G47.33 - OBSTRUCTIVE SLEEP APNEA ( ADULT) (PEDIATRIC) SNOMED Code(s): 94914249 Comment: Family will bring in her own CPAP. She used the [facility] equipment the first night. (4) Morbid obesity Current Visit: Yes Status: Acute Code(s): E66.01 - MORBID (SEVERE) OBESITY DUE TO EXCESS CALORIES SNOMED Code(s): 937932647 Comment: BMI 52.1. (5) Incarcerated ventral hernia Current Visit: Yes Status: Acute Code(s): K43.6 - OTHER AND UNSP VENTRAL HERNIA WITH OBSTRUCTION, W/O GANGRENE SNOMED Code(s): 520141470 Comment: S/P repair 09/11/18 near [place].
[2018-09-12] MEDS: Albuterol/Ipratropium NEB.SOL* Albuterol 2.5 MG/Ipratropium 0.5 MG 3 ML INH PRN ×2 (11:43→16:44)
[2018-09-12] MEDS ORDERED: Insulin REGULAR(*) 1 UNITS UNIT SUBCUT SCH (12:00)
[2018-09-12] MEDS: Insulin REGULAR(*) 1 UNITS UNIT SUBCUT SCH ×2 (12:27→18:14)
[2018-09-12] MEDS ORDERED: NS 0.9% 1000 ML* 1,000 ML IV ONE (18:05)
[2018-09-12] MEDS ORDERED: Furosemide IV* 10 MG/ML 2 ML VIAL (20 MG) IV ONE (19:27)
[2018-09-13 01:46] LABS: ABS Basophils 0 10^3/ul (0-0.2); ABS Eosinophils 0 10^3/ul (0-0.6); ABS Lymphocytes 0.8 10^3/ul (1.0-4.8); ABS Monocytes 0.6 10^3/ul (0-0.8); ABS Neutrophils 14.1 10^3/ul (1.5-7.7); ABS Nucleated RBC 0 10^3/ul; Eosinophil % 0.1 %; Hematocrit 36 % (35-47); Hemoglobin 11.7 g/dl (12.0-16.0); Lymphocyte % 5.2 %; Mean Corpuscular HGB Conc 32 g/dl (31-36); Mean Corpuscular Hemoglobin 28 pg (27-31); Mean Corpuscular Volume 86 fL (80-97); Mean Platelet Volume 8.3 fL (7.4-10.4); Nucleated Red Blood Cells % 0; Platelet Count 191 10^3/ul (150-450); Red Blood Count 4.24 10^6/ul (4.00-5.40); Red Cell Distribution Width 15 % (10.5-15); White Blood Count 15.6 10^3/ul (3.5-10.8)
[2018-09-13 01:59] LABS: Albumin 3.3 g/dL (3.2-5.2); Albumin/Globulin Ratio 1.1 (1-3); BUN/Creatinine Ratio 34.7 (8-20); Calcium 8.4 mg/dL (8.6-10.3); EGFR Non-African American 42.4 (>60); Globulin 2.9 g/dL (2-4); Magnesium 1.6 mg/dL (1.9-2.7); Potassium 4.2 mmol/L (3.5-5.0); Total Bilirubin 0.4 mg/dL (0.2-1.0); Total Protein 6.2 g/dL (6.4-8.9)
--- NOTE | 2018-09-13 03:29 | OP ---
CC: Dr. Aquiles Wilson * DATE OF OPERATION: 09/11/18 - ROOM #ICU-06 DATE OF : 45 SURGEON: Dr. Fitzpatrick. ROLL ON WORKER: None. ANESTHESIOLOGIST: Dr. Daniel. ANESTHESIA: General anesthetic. PRE-OP DIAGNOSIS: Incarcerated ventral hernia with bowel obstruction. POST-OP DIAGNOSIS: Incarcerated ventral hernia with bowel obstruction. OPERATIVE PROCEDURE: Open repair of incarcerated ventral hernia with mesh. DESCRIPTION OF PROCEDURE: The patient was supine on the operative table. After adequate general anesthetic, compression stockings, Lorrie Hugger warmer, and intravenous antibiotics, the abdomen was prepped with antiseptic, draped in a sterile fashion. A transverse incision was created over the hernia in the infraumbilical region. This was approximately a 15 to 20 cm incision. The hernia was at least 20 cm across. Ultimately, the sac was opened and the hernia defect was opened inferiorly to allow everything to be reduced and then the sac was placed over the bowel. The bowel was examined and was in good condition. It was a little purplely initially, but once it was released, everything pinked up nicely. So, it was all reduced. The sac was placed over the top of the bowel and then an underlay ventral patch approximately 5 x 7 inches was utilized. This was sutured out laterally using full thickness #1 Vicryl and the fascia was closed in the midline using running #1 Vicryl, which was also attached to the anterior leaflet of the patch. The patch was also tacked underneath using the spiral tacker. The adipose was reapproximated using 2-0 Vicryl, which was also used to tack down the loose skin from the inferior flap as well as the umbilicus and then skin was closed with surgical angélica. Local anesthetic was administered into the muscle as well. Everything was in good condition. Gauze dressing was placed. She tolerated the procedure well, was awakened, extubated and brought to Recovery. There were no complications. No drains. No pathologic specimens. Sponge and instrument counts were correct. Estimated blood loss was less than 100 mL. [id number]/CPS #: [id number] MTDD
[2018-09-13] MEDS: Insulin REGULAR(*) 1 UNITS UNIT SUBCUT SCH ×5 (03:35→21:18)
[2018-09-13] MEDS: Heparin VIAL(*) 5000 UNITS/ML VIAL (FIVE THOUSAND) SUBCUT SCH ×3 (05:50→21:34)
[2018-09-13 06:15] LABS: ABS Basophils 0 10^3/ul (0-0.2); ABS Eosinophils 0 10^3/ul (0-0.6); ABS Lymphocytes 0.8 10^3/ul (1.0-4.8); ABS Monocytes 0.6 10^3/ul (0-0.8); ABS Nucleated RBC 0 10^3/ul; Eosinophil % 0 %; Hematocrit 36 % (35-47); Hemoglobin 11.7 g/dl (12.0-16.0); Lymphocyte % 5.3 %; Mean Corpuscular HGB Conc 33 g/dl (31-36); Mean Corpuscular Hemoglobin 28 pg (27-31); Mean Corpuscular Volume 85 fL (80-97); Mean Platelet Volume 8.1 fL (7.4-10.4); Nucleated Red Blood Cells % 0; Platelet Count 195 10^3/ul (150-450); Red Blood Count 4.23 10^6/ul (4.00-5.40); Red Cell Distribution Width 15 % (10.5-15); White Blood Count 14.4 10^3/ul (3.5-10.8)
[2018-09-13 06:39] LABS: BUN/Creatinine Ratio 33.9 (8-20); Calcium 8.5 mg/dL (8.6-10.3); EGFR Non-African American 43.6 (>60); Potassium 4.2 mmol/L (3.5-5.0)
[2018-09-13] MEDS: HYDROmorphone INJ* 0.5 MG/0.5 ML SYRINGE IV PRN ×3 (07:53→17:26)
[2018-09-13] MEDS ORDERED: Perflutren Lipid Microsphere* 3 ML VIAL ONE (08:55)
[2018-09-13] MEDS ORDERED: Ondansetron INJ* 2 MG/ML VIAL IV PRN (09:13)
[2018-09-13] MEDS ORDERED: Lactated Ringers 1000 ML Bag* 1,000 ML IV SCH (09:17)
--- NOTE | 2018-09-13 09:23 | PN ---
Subjective Date of Service: 09/13/18 Interval History: Occ nausea. No pain. Hungry. Objective Active Medications: Albuterol (Ventolin Hfa Inhaler*) 2 puff INH Q4H PRN PRN Reason: SOB/WHEEZING Albuterol/Ipratropium (Duoneb (Albuterol 2.5 Mg/Ipratropium 0.5 Mg)) 1 neb INH Q4H PRN PRN Reason: SOB/WHEEZING Last Admin: 09/12/18 16:44 Dose: 1 neb Heparin Sodium (Porcine) (Heparin Vial(*)) 5,000 units SUBCUT Q8HR [facility] Last Admin: 09/13/18 05:50 Dose: 5,000 units Hydromorphone HCl (Dilaudid Inj*) 0.5 mg IV Q1H PRN PRN Reason: Pain - severe Last Admin: 09/13/18 07:53 Dose: 0.5 mg Lactated Ringer's (Lactated Ringers 1000 Ml Bag*) 1,000 mls @ 100 mls/hr IV PER RATE [facility] Last Admin: 09/12/18 18:24 Dose: 100 mls/hr Insulin Human Regular (Insulin Regular(*)) 0 units SUBCUT ACHS [facility]; Protocol Nystatin (Nystatin Top Powder*) 1 applic TOPICAL TID PRN PRN Reason: RASH Stop: 09/19/18 08:37 Ondansetron HCl (Zofran Inj*) 4 mg IV Q4H PRN PRN Reason: NAUSEA/VOMITING Vital Signs - 8 hr 09/13/18 09/13/18 09/13/18 02:00 02:01 03:00 Temperature Pulse Rate 69 68 67 Respiratory 21 21 10 Rate Blood Pressure 135/65 146/66 (mmHg) O2 Sat by Pulse 92 92 92 Oximetry 09/13/18 09/13/18 09/13/18 03:01 03:44 03:57 Temperature 98.3 F Pulse Rate 65 62 Respiratory 18 22 Rate Blood Pressure (mmHg) O2 Sat by Pulse 93 92 Oximetry 09/13/18 09/13/18 09/13/18 04:00 04:01 05:00 Temperature Pulse Rate 65 66 64 Respiratory 10 17 22 Rate Blood Pressure 154/70 131/59 (mmHg) O2 Sat by Pulse 95 94 93 Oximetry 09/13/18 09/13/18 09/13/18 05:01 06:00 06:01 Temperature Pulse Rate 67 63 68 Respiratory 19 17 21 Rate Blood Pressure 147/67 (mmHg) O2 Sat by Pulse 93 89 81 Oximetry 09/13/18 09/13/18 09/13/18 07:00 07:01 07:27 Temperature 99.2 F Pulse Rate 65 63 Respiratory 22 20 Rate Blood Pressure 159/76 (mmHg) O2 Sat by Pulse 92 92 Oximetry 09/13/18 07:53 Temperature Pulse Rate Respiratory 28 Rate Blood Pressure (mmHg) O2 Sat by Pulse Oximetry Oxygen Devices in Use Now: Nasal Cannula, BiPAP Appearance: Alert, partly up on ICU bed. In good spirits. Looks comfortable. Eyes: No Scleral Icterus Neck: NL Appearance and Movements; NL JVP, No Thyroid Enlargement, Masses Respiratory: Symmetrical Chest Expansion and Respiratory Effort, Clear to Percussion Cardiovascular: NL Sounds; No Murmurs; No JVD, RRR, No Edema, - Abdominal: NL Sounds; No Tenderness; No Distention, No Hepatosplenomegaly, - Extremities: No Edema, No Clubbing, Cyanosis, - Skin: No Rash or Ulcers, No Nodules or Sclerosis, - Neurological: Alert and Oriented x 3 Result Diagrams: 09/13/18 05:58 09/13/18 05:58 Additional Lab and Data: Lab Results 09/11/18 09/11/18 09/11/18 Range/Units 19:12 19:12 19:12 WBC 11.0 H (3.5-10.8) 10^3/ul RBC 4.77 (4.00-5.40) 10^6/ul Hgb 13.2 (12.0-16.0) g/dl Hct 40 (35-47) % MCV 85 (80-97) fL MCH 28 (27-31) pg MCHC 33 (31-36) g/dl RDW 15 (10.5-15) % Plt Count 208 (150-450) 10^3/ul MPV 8.5 (7.4-10.4) fL Neut % (Auto) 90.1 % Lymph % (Auto) 7.0 % [place] % (Auto) 2.1 % Eos % (Auto) 0.1 % Baso % (Auto) 0.7 % Absolute Neuts (auto) 9.9 H (1.5-7.7) 10^3/ul Absolute Lymphs (auto) 0.8 L (1.0-4.8) 10^3/ul Absolute Monos (auto) 0.2 (0-0.8) 10^3/ul Absolute Eos (auto) 0 (0-0.6) 10^3/ul Absolute Basos (auto) 0.1 (0-0.2) 10^3/ul Absolute Nucleated RBC 0 10^3/ul Nucleated RBC % 0 VBG pH (7.32-7.43) VBG pCO2 (41-51) mmHg VBG pO2 (35-45) mmHg VBG HCO3 (24-28) mmol/L VBG O2 Saturation (70-80) % VBG Base Excess (0.0-4.0) mmol/L Sodium 139 (135-145) mmol/L Potassium 3.9 (3.5-5.0) mmol/L Chloride 100 L (101-111) mmol/L Carbon Dioxide 26 (22-32) mmol/L Anion Gap 13 H (2-11) mmol/L BUN 31 H (6-24) mg/dL Creatinine 0.89 (0.51-0.95) mg/dL Est GFR ( Amer) 75.2 (>60) Est GFR (Non-Af Amer) 62.2 (>60) BUN/Creatinine Ratio 34.8 H (8-20) Glucose 207 H (70-100) mg/dL Lactic Acid 3.7 H* (0.5-2.0) mmol/L Calcium 9.8 (8.6-10.3) mg/dL Total Bilirubin 0.30 (0.2-1.0) mg/dL AST 18 (13-39) U/L ALT 14 (7-52) U/L Alkaline Phosphatase 72 (34-104) U/L C-Reactive Protein 16.57 H (<8.01) mg/L Total Protein 7.6 (6.4-8.9) g/dL Albumin 4.2 (3.2-5.2) g/dL Globulin 3.4 (2-4) g/dL Albumin/Globulin Ratio 1.2 (1-3) Lipase 13 (11.0-82.0) U/L 12/24/18 Range/Units 20:18 WBC (3.5-10.8) 10^3/ul RBC (4.00-5.40) 10^6/ul Hgb (12.0-16.0) g/dl Hct (35-47) % MCV (80-97) fL MCH (27-31) pg MCHC (31-36) g/dl RDW (10.5-15) % Plt Count (150-450) 10^3/ul MPV (7.4-10.4) fL Neut % (Auto) % Lymph % (Auto) % [place] % (Auto) % Eos % (Auto) % Baso % (Auto) % Absolute Neuts (auto) (1.5-7.7) 10^3/ul Absolute Lymphs (auto) (1.0-4.8) 10^3/ul Absolute Monos (auto) (0-0.8) 10^3/ul Absolute Eos (auto) (0-0.6) 10^3/ul Absolute Basos (auto) (0-0.2) 10^3/ul Absolute Nucleated RBC 10^3/ul Nucleated RBC % VBG pH 7.31 L (7.32-7.43) VBG pCO2 54 H (41-51) mmHg VBG pO2 < 38.0 (35-45) mmHg VBG HCO3 23.8 L (24-28) mmol/L VBG O2 Saturation 56.3 L (70-80) % VBG Base Excess 0.0 (0.0-4.0) mmol/L Sodium (135-145) mmol/L Potassium (3.5-5.0) mmol/L Chloride (101-111) mmol/L Carbon Dioxide (22-32) mmol/L Anion Gap (2-11) mmol/L BUN (6-24) mg/dL Creatinine (0.51-0.95) mg/dL Est GFR ( Amer) (>60) Est GFR (Non-Af Amer) (>60) BUN/Creatinine Ratio (8-20) Glucose (70-100) mg/dL Lactic Acid (0.5-2.0) mmol/L Calcium (8.6-10.3) mg/dL Total Bilirubin (0.2-1.0) mg/dL AST (13-39) U/L ALT (7-52) U/L Alkaline Phosphatase (34-104) U/L C-Reactive Protein (<8.01) mg/L Total Protein (6.4-8.9) g/dL Albumin (3.2-5.2) g/dL Globulin (2-4) g/dL Albumin/Globulin Ratio (1-3) Lipase (11.0-82.0) U/L Microbiology and Other Data: Microbiology 09/12/18 02:05 Nasal Screen MRSA (PCR) - Final Nasal Mrsa Not Detected EKG Data: ns 1st avb qtc is 493 Assess/Plan/Problems-Billing Plan By Medical Problem: this is a 73 yr old wf with hx of morbid obesity thao copd on 11/04 oxygen had incarcerated ventral hernia repair. medicine was called to optimized pt for surgery and medical mgt afterwards. pt was able to be extubated and put on bipap 1. incarerated ventral hernia s/p surgery continue pain meds and zofran, abx, iv fluid as per surgery still npo surgery f/u 2. copd thao ---> asked family to bring her home cpap in case she can be titrated to her home setting - duoneb prn oxygen as per protocol 3 type ii dm - still npo on metofrmin at home----> will continue insulin ss q 6 while npo 4 elevated lactic acid level since admission was 3.7 on admission slightly increased to 4.0 - will recycle lactic acid level until it reaches normal level - continue iv abx zosyn as per surgery 5 decreased urine outpt despite of ivf ns lr 100 cc 500 cc ns given - will order echo for later need of ivf VTE PPX: heparin as per surgery Diet: npo still as per surgery Code Status: full Admission Status and Rationale: - Patient Problems (1) Diabetes Current Visit: Yes Status: Acute Code(s): E11.9 - TYPE 2 DIABETES MELLITUS WITHOUT COMPLICATIONS SNOMED Code(s): 75376448 Comment: Continue Lispro by SS on achs schedule. As she will not be resuming metformin, will assess for another oral regimen when she is on a full diet. (2) Lactic acidosis Current Visit: Yes Status: Acute Code(s): E87.2 - ACIDOSIS SNOMED Code(s) : 80867133 Comment: Possible due to metformin, now listed as adverse reaction. (3) THAO (obstructive sleep apnea) Current Visit: Yes Status: Acute Code(s): G47.33 - OBSTRUCTIVE SLEEP APNEA ( ADULT) (PEDIATRIC) SNOMED Code(s): 99117546 Comment: Family will bring in her own CPAP. She does well with the [facility] equipment. (4) Morbid obesity Current Visit: Yes Status: Acute Code(s): E66.01 - MORBID (SEVERE) OBESITY DUE TO EXCESS CALORIES SNOMED Code(s): 738394917 Comment: BMI 52.4. (5) Incarcerated ventral hernia Current Visit: Yes Status: Acute Code(s): K43.6 - OTHER AND UNSP VENTRAL HERNIA WITH OBSTRUCTION, W/O GANGRENE SNOMED Code(s): 140033752 Comment: S/P repair 09/[place].
--- NOTE | 2018-09-13 12:19 | ECHO ---
Patient: VINICIUS GREENE [facility] Rec#: [id number] : 1945 Date: 09/13/2018 Age: 73y Height: 160 cm / 63.0 in Weight: 133.3 kg / 293.8 lbs Sex: F BSA: 2.28 Room#: ICU 6 Admit Date#: 09/12/2018 Type: Inpatient Referring: Ramona Britton Reading: Rei Lopez MD Trades Helper: Radha Burnett RN RDCS CC: Aquiles Wilson MD Transthoracic Echocardiogram Indication: Shortness of breath BP: 159/76 HR: 64 Rhythm: NSR with PVCs Findings History: HTN, HLD, DM, CHF, COPD, JUNIOR, morbid obesity, S/P incarcerated ventral hernia repair. Technical Comments: The study is technically limited due to patient body habitus. The study is technically limited due to the patient's history of COPD. Left Ventricle: The left ventricular chamber size is mildly dilated. Mild to moderate concentric left ventricular hypertrophy is observed. Global left ventricular wall motion and contractility are within normal limits. The left ventricle appears hyperdynamic. The estimated ejection fraction is greater than 65%. There is septal flattening of the interventricular septum consistent with right ventricular volume or pressure overload. Abnormal left ventricular diastolic function is observed.The grade and LAP is indeterminate. Left Atrium: The left atrium is moderately dilated. Right Ventricle: The right ventricle wall thickness is mildly increased.7 mm. The right ventricle is mild to moderately dilated. The right ventricular global systolic function is low normal. Right Atrium: The right atrium is mild to moderately dilated. Aortic Valve: The aortic valve leaflets are mildly thickened. There is a trace of aortic regurgitation. There is mild aortic stenosis. The mean gradient of the aortic valve is 14 mmHg. The peak instantaneous gradient of the aortic valve is 29 mmHg. The aortic valve area, by peak velocities, is calculated at 2 cm2. The aortic valve area, by VTI's, is calculated at 1.9 cm2. Mitral Valve: There is mitral annular calcification. The mitral valve leaflets are mildly thickened. There is a trace of mitral regurgitation. There is no evidence of mitral stenosis. Tricuspid Valve: The tricuspid valve leaflets are normal. There is trace to mild tricuspid regurgitation. Unable to estimate the right ventricular systolic pressure. There is no tricuspid stenosis. Pulmonic Valve: The pulmonic valve structure is not well visualized. There is no evidence of pulmonic regurgitation. There is no pulmonic stenosis. Pericardium: There is no significant pericardial effusion. A pericardial fat pad is visualized. Aorta: There is no dilatation of the ascending aorta. There is no dilatation of the aortic arch. There is no dilation of the aortic root. Pulmonary Artery: The main pulmonary artery is not well visualized. Venous: The venous system is not well visualized. The inferior vena cava is not visualized. Contrast: Definity was used to optimize study. A total of 4 ml of diluted Definity was given IV. Conclusions Mild to moderate concentric left ventricular hypertrophy is observed. The left ventricle appears hyperdynamic. The estimated ejection fraction is greater than 65%. There is septal flattening of the interventricular septum consistent with right ventricular volume or pressure overload. Abnormal left ventricular diastolic function is observed. The grade and LAP is indeterminate. The left atrium is moderately dilated. The right ventricle wall thickness is mildly increased. The right ventricle is mild to moderately dilated. There is mitral annular calcification. There is a trace of mitral regurgitation. There is trace to mild tricuspid regurgitation. There is mild aortic stenosis. There is a trace of aortic regurgitation. Similar to 09/2013 with a mild interval increase in Aortic stenosis. Measurements Name Value Normal Range RVIDd (AP) 2D 3.7 cm (0.9 - 2.6) RVDdMajor (2D) 5.3 cm (2.2 - 4.4) RVAW (2D) 0.9 cm (0.2 - 0.5) RAd ISD 4CH 5.8 cm (3.4 - 4.9) RA (A4C)W 4.8 cm (2.9 - 4.6) IVSd (2D) 1.2 cm (0.6 - 1) LVPWd (2D) 1.3 cm (0.6 - 1) LVIDd (2D) 5.6 cm (3.6 - 5.4) LVIDs (2D) 3.5 cm - LV FS (2D) 38 % (25 - 45) Aortic Annulus 2 cm (1.4 - 2.6) Ao root diameter (2D) 2.7 cm (2.1 - 3.5) Ascending Ao 2.1 cm (2.1 - 3.4) LA dimension (AP) 2D 4.9 cm (2.3 - 3.8) LAd ISD 4CH 6.2 cm (2.9 - 5.3) LA ISD 4CH W 5.3 cm (2.5 - 4.5) Name Value Normal Range LA ESV BP (A/L) index 45.8 ml/m2 - Name Value Normal Range MV E-wave Vmax 1.1 m/sec - MV deceleration time 261 msec - MV A-wave Vmax 1.3 m/sec - MV E:A ratio 0.8 ratio - LV septal e' Vmax 0.08 m/sec - LV lateral e' Vmax 0.1 m/sec - LV E:e' septal ratio 13.8 ratio - LV E:e' lateral ratio 11 ratio - Name Value Normal Range AV Vmax 2.7 m/sec - AV VTI 59.5 cm - AV peak gradient 29 mmHg - AV mean gradient 14 mmHg - LVOT diameter 2 cm - LVOT Vmax 1.7 m/sec - LVOT VTI 37.2 cm - LVOT peak gradient 12 mmHg - LVOT mean gradient 7 mmHg - DOI (VTI) 0.62 ratio - DOI (Vmax) 0.63 ratio - HUBERT (continuity Vmax) 2 cm2 - HUBERT (continuity VTI) 1.9 cm2 - KANDICE Vmax 1.2 m/sec - Name Value Normal Range PV Vmax 1.4 m/sec -
--- NOTE | 2018-09-13 13:23 | PN ---
Progress Note - Progress Note Date of Service: 09/13/18 Note: POD#2 s/p ventral hernia Afeb, VS noted UO adeq Jaylin po's, some nausea pain control OK Alert and coherent Breathing easy, unlabored Abd obese, soft, sore, incis w/ecchymosis, otherwise clean, few BS Cont clears await increased GI fxn OOB as jaylin Leave kinney to monitor UO Follow I/O, creatinine Resp and DM care per hospitalist
[2018-09-13] MEDS ORDERED: NS 0.9% 500 ML* 500 ML IV ONE (15:05)
[2018-09-13] MEDS ORDERED: Furosemide IV* 10 MG/ML 2 ML VIAL (20 MG) IV ONE (21:41)
[2018-09-13] MEDS ORDERED: Furosemide IV* 10 MG/ML 2 ML VIAL (20 MG) ONE (21:44)
[2018-09-13] MEDS ORDERED: LORazepam INJ* 2 MG/ML 1 ML VIAL IV PUSH ONE (21:45)
--- NOTE | 2018-09-14 03:39 | PN ---
Hospitalist Progress Note Date of Service: 09/13/18 pt has an episode of sob with some rales developing worsening sob ---> not on ivf now but got ns bolus 500 cc due to low urine outpt---> lasix 10 mg ivp times one given ativan 1 mg ivp times one and placed on bipap has been doing well overnight since
[2018-09-14] MEDS: Heparin VIAL(*) 5000 UNITS/ML VIAL (FIVE THOUSAND) SUBCUT SCH ×3 (05:37→21:20)
[2018-09-14 05:47] LABS: ABS Basophils 0 10^3/ul (0-0.2); ABS Eosinophils 0 10^3/ul (0-0.6); ABS Lymphocytes 0.7 10^3/ul (1.0-4.8); ABS Monocytes 0.4 10^3/ul (0-0.8); ABS Neutrophils 9.9 10^3/ul (1.5-7.7); ABS Nucleated RBC 0 10^3/ul; Eosinophil % 0.3 %; Hematocrit 32 % (35-47); Hemoglobin 10.3 g/dl (12.0-16.0); Lymphocyte % 6.4 %; Mean Corpuscular HGB Conc 32 g/dl (31-36); Mean Corpuscular Hemoglobin 28 pg (27-31); Mean Corpuscular Volume 86 fL (80-97); Mean Platelet Volume 8.3 fL (7.4-10.4); Nucleated Red Blood Cells % 0; Platelet Count 158 10^3/ul (150-450); Red Blood Count 3.73 10^6/ul (4.00-5.40); Red Cell Distribution Width 15 % (10.5-15)
[2018-09-14 06:04] LABS: BUN/Creatinine Ratio 41.9 (8-20); Calcium 8.6 mg/dL (8.6-10.3); EGFR Non-African American 59.1 (>60)
[2018-09-14] MEDS: HYDROmorphone INJ* 0.5 MG/0.5 ML SYRINGE IV PRN (07:29)
--- NOTE | 2018-09-14 08:35 | PN ---
Progress Note - Progress Note Date of Service: 09/14/18 Note: POD#3 s/p incarcerated hernia Afeb, VS noted UO OK, needed lasix in the night Jaylin some po's, no emesis, not a great appetite No bowel mvmnt yet Pain control OK OOB yest Alert and coherent Breathing unlabored Abd obese. soft, sore, binder in place, few BS LE's obese, ?edema? Advance po's as jaylin; D/C Qiu MOM to stim bowels OOB more Resp care per medicine Txfr to SSU when OK w/ hospitalist
[2018-09-14] MEDS: Insulin REGULAR(*) 1 UNITS UNIT SUBCUT SCH ×4 (09:36→21:50)
[2018-09-14] MEDS: Magnesium Hydroxide LIQ* 30 ML UDC PO SCH ×2 (09:37→21:21)
[2018-09-14] MEDS ORDERED: Furosemide IV* 10 MG/ML VIAL (40 MG) ONE (10:03)
[2018-09-14] MEDS: Furosemide IV* 10 MG/ML VIAL (40 MG) IV SCH ×2 (10:10→21:21)
[2018-09-14] MEDS ORDERED: Acetylcysteine CAP (RENAL)* 600 MG PO SCH (11:00)
[2018-09-14] MEDS: Nystatin TOP POWDER* 15 GM BTL TOPICAL SCH ×2 (15:19→21:21)
[2018-09-14] MEDS: FLUoxetine CAP* 20 MG PO SCH (15:58)
[2018-09-14] MEDS: Albuterol/Ipratropium NEB.SOL* Albuterol 2.5 MG/Ipratropium 0.5 MG 3 ML INH PRN (16:45)
--- NOTE | 2018-09-14 17:18 | PN ---
Subjective Date of Service: 09/14/18 Interval History: Pt seen and examined. Meds and labs reviewed. CC: Orthopnea ROS: Denied PRINGEL/dizziness, F/C, N/V, CP, SOB, increased cough, sputum production , abd pain, diarrhea, constipation, dysuria, myalgias, arthralgias, throat pain , and new skin lesions. The rest of the 14 point ROS are unremarkable. PHYSICAL EXAM: GEN APPEARANCE: Awake, not in acute distress HEENT: NC/AT, PERRLA, moist oral mucosa, (-) throat erythema NECK: Soft, supple, (-) cervical LAD, (-)JVD HEART: S1S2 WNL, RRR, No MRG CHEST: CTA, BL, GAE, No W/R/R ABD: Soft, ND/NT, NABS 4x Q EXT: No C/C/E SKIN: Warm to touch PSYCH: No active psychosis, hallucinations, depression, SI/HI Objective Active Medications: Albuterol (Ventolin Hfa Inhaler*) 2 puff INH Q4H PRN PRN Reason: SOB/WHEEZING Albuterol/Ipratropium (Duoneb (Albuterol 2.5 Mg/Ipratropium 0.5 Mg)) 1 neb INH Q4H PRN PRN Reason: SOB/WHEEZING Last Admin: 09/14/18 16:45 Dose: 1 neb Fluoxetine HCl (Prozac Cap*) 40 mg PO DAILY [facility] Last Admin: 09/14/18 15:58 Dose: 40 mg Furosemide (Lasix Iv*) 40 mg IV BID [facility] Last Admin: 09/14/18 10:10 Dose: Not Given Heparin Sodium (Porcine) (Heparin Vial(*)) 5,000 units SUBCUT Q8HR [facility] Last Admin: 09/14/18 15:18 Dose: 5,000 units Hydromorphone HCl (Dilaudid Inj*) 0.5 mg IV Q1H PRN PRN Reason: Pain - severe Last Admin: 09/14/18 07:29 Dose: 0.5 mg Insulin Human Regular (Insulin Regular(*)) 0 units SUBCUT [facility]; Protocol Last Admin: 09/14/18 13:02 Dose: 3 units Magnesium Hydroxide (Milk Of Magnesia Liq*) 30 ml PO BID [facility] Last Admin: 09/14/18 09:37 Dose: 30 ml Nystatin (Nystatin Top Powder*) 1 applic TOPICAL TID PRN PRN Reason: RASH Stop: 09/19/18 08:37 Nystatin (Nystatin Top Powder*) 1 applic TOPICAL TID CHARLES Stop: 09/28/18 13:59 Last Admin: 09/14/18 15:19 Dose: 1 applic Ondansetron HCl (Zofran Inj*) 4 mg IV Q6H PRN PRN Reason: NAUSEA Vital Signs - 8 hr 09/14/18 09/14/18 09/14/18 09:37 10:00 10:01 Temperature Pulse Rate 62 63 Respiratory 21 15 16 Rate Blood Pressure 134/63 (mmHg) O2 Sat by Pulse 91 93 Oximetry 09/14/18 09/14/18 09/14/18 11:00 11:29 12:00 Temperature 99 F Pulse Rate 80 63 Respiratory 18 17 Rate Blood Pressure 149/82 147/75 (mmHg) O2 Sat by Pulse 97 100 Oximetry 09/14/18 09/14/18 09/14/18 13:00 13:01 14:00 Temperature Pulse Rate 59 55 67 Respiratory 19 22 23 Rate Blood Pressure 152/76 172/79 (mmHg) O2 Sat by Pulse 100 98 Oximetry 09/14/18 09/14/18 09/14/18 14:01 15:00 15:01 Temperature Pulse Rate 67 64 66 Respiratory 25 20 22 Rate Blood Pressure 157/71 (mmHg) O2 Sat by Pulse 97 99 99 Oximetry 09/14/18 09/14/18 09/14/18 15:27 15:58 16:00 Temperature 99 F Pulse Rate 67 Respiratory 20 23 Rate Blood Pressure (mmHg) O2 Sat by Pulse 93 Oximetry 09/14/18 09/14/18 16:01 16:58 Temperature Pulse Rate 124 Respiratory 23 Rate Blood Pressure 176/84 (mmHg) O2 Sat by Pulse 96 Oximetry Oxygen Devices in Use Now: BiPAP Result Diagrams: 09/14/18 05:38 09/14/18 05:38 Additional Lab and Data: Lab Results 09/11/18 09/11/18 09/11/18 Range/Units 19:12 19:12 19:12 WBC 11.0 H (3.5-10.8) 10^3/ul RBC 4.77 (4.00-5.40) 10^6/ul Hgb 13.2 (12.0-16.0) g/dl Hct 40 (35-47) % MCV 85 (80-97) fL MCH 28 (27-31) pg MCHC 33 (31-36) g/dl RDW 15 (10.5-15) % Plt Count 208 (150-450) 10^3/ul MPV 8.5 (7.4-10.4) fL Neut % (Auto) 90.1 % Lymph % (Auto) 7.0 % [place] % (Auto) 2.1 % Eos % (Auto) 0.1 % Baso % (Auto) 0.7 % Absolute Neuts (auto) 9.9 H (1.5-7.7) 10^3/ul Absolute Lymphs (auto) 0.8 L (1.0-4.8) 10^3/ul Absolute Monos (auto) 0.2 (0-0.8) 10^3/ul Absolute Eos (auto) 0 (0-0.6) 10^3/ul Absolute Basos (auto) 0.1 (0-0.2) 10^3/ul Absolute Nucleated RBC 0 10^3/ul Nucleated RBC % 0 VBG pH (7.32-7.43) VBG pCO2 (41-51) mmHg VBG pO2 (35-45) mmHg VBG HCO3 (24-28) mmol/L VBG O2 Saturation (70-80) % VBG Base Excess (0.0-4.0) mmol/L Sodium 139 (135-145) mmol/L Potassium 3.9 (3.5-5.0) mmol/L Chloride 100 L (101-111) mmol/L Carbon Dioxide 26 (22-32) mmol/L Anion Gap 13 H (2-11) mmol/L BUN 31 H (6-24) mg/dL Creatinine 0.89 (0.51-0.95) mg/dL Est GFR ( Amer) 75.2 (>60) Est GFR (Non-Af Amer) 62.2 (>60) BUN/Creatinine Ratio 34.8 H (8-20) Glucose 207 H (70-100) mg/dL Lactic Acid 3.7 H* (0.5-2.0) mmol/L Calcium 9.8 (8.6-10.3) mg/dL Total Bilirubin 0.30 (0.2-1.0) mg/dL AST 18 (13-39) U/L ALT 14 (7-52) U/L Alkaline Phosphatase 72 (34-104) U/L C-Reactive Protein 16.57 H (<8.01) mg/L Total Protein 7.6 (6.4-8.9) g/dL Albumin 4.2 (3.2-5.2) g/dL Globulin 3.4 (2-4) g/dL Albumin/Globulin Ratio 1.2 (1-3) Lipase 13 (11.0-82.0) U/L 09/11/18 Range/Units 20:18 WBC (3.5-10.8) 10^3/ul RBC (4.00-5.40) 10^6/ul Hgb (12.0-16.0) g/dl Hct (35-47) % MCV (80-97) fL MCH (27-31) pg MCHC (31-36) g/dl RDW (10.5-15) % Plt Count (150-450) 10^3/ul MPV (7.4-10.4) fL Neut % (Auto) % Lymph % (Auto) % [place] % (Auto) % Eos % (Auto) % Baso % (Auto) % Absolute Neuts (auto) (1.5-7.7) 10^3/ul Absolute Lymphs (auto) (1.0-4.8) 10^3/ul Absolute Monos (auto) (0-0.8) 10^3/ul Absolute Eos (auto) (0-0.6) 10^3/ul Absolute Basos (auto) (0-0.2) 10^3/ul Absolute Nucleated RBC 10^3/ul Nucleated RBC % VBG pH 7.31 L (7.32-7.43) VBG pCO2 54 H (41-51) mmHg VBG pO2 < 38.0 (35-45) mmHg VBG HCO3 23.8 L (24-28) mmol/L VBG O2 Saturation 56.3 L (70-80) % VBG Base Excess 0.0 (0.0-4.0) mmol/L Sodium (135-145) mmol/L Potassium (3.5-5.0) mmol/L Chloride (101-111) mmol/L Carbon Dioxide (22-32) mmol/L Anion Gap (2-11) mmol/L BUN (6-24) mg/dL Creatinine (0.51-0.95) mg/dL Est GFR ( Amer) (>60) Est GFR (Non-Af Amer) (>60) BUN/Creatinine Ratio (8-20) Glucose (70-100) mg/dL Lactic Acid (0.5-2.0) mmol/L Calcium (8.6-10.3) mg/dL Total Bilirubin (0.2-1.0) mg/dL AST (13-39) U/L ALT (7-52) U/L Alkaline Phosphatase (34-104) U/L C-Reactive Protein (<8.01) mg/L Total Protein (6.4-8.9) g/dL Albumin (3.2-5.2) g/dL Globulin (2-4) g/dL Albumin/Globulin Ratio (1-3) Lipase (11.0-82.0) U/L Microbiology and Other Data: Microbiology 09/12/18 02:05 Nasal Screen MRSA (PCR) - Final Nasal Mrsa Not Detected EKG Data: ns 1st avb qtc is 493 Assess/Plan/Problems-Billing Plan By Medical Problem: this is a 73 yr old wf with hx of morbid obesity junior copd on 11/04 oxygen had incarcerated ventral hernia repair. medicine was called to optimized pt for surgery and medical mgt afterwards. pt was able to be extubated and put on bipap 1. incarerated ventral hernia s/p surgery continue pain meds and zofran, abx, iv fluid as per surgery still npo surgery f/u 2. copd junior ---> asked family to bring her home cpap in case she can be titrated to her home setting - duoneb prn oxygen as per protocol 3 type ii dm - still npo on metofrmin at home----> will continue insulin ss q 6 while npo 4 elevated lactic acid level since admission was 3.7 on admission slightly increased to 4.0 - will recycle lactic acid level until it reaches normal level - continue iv abx zosyn as per surgery 5 decreased urine outpt despite of ivf ns lr 100 cc 500 cc ns given - will order echo for later need of ivf VTE PPX: heparin as per surgery Diet: npo still as per surgery Code Status: full Admission Status and Rationale: - Patient Problems (1) Respiratory distress Current Visit: Yes Status: Acute Code(s): R06.03 - ACUTE RESPIRATORY DISTRESS SNOMED Code(s): 015692050 Comment: -Likely due to diastolic CHF exacerbation, primarily right sided likely cause of only mildly elevated BNP -Consistent w/pts complaint of orthopnea -Started IV Lasix BID today w/c improved her work or breathing -ABG reveals combined respiratory and metabolic acidosis; where NAGMA is likely due to post-hypocapnia due to pts tachypnea causing bicarbonate loss renally. -Lactic acidosis has improved with no improvement of pH and pt continues to have normal anion gap; although contributing, unlikely to explain combined acid- base disorder as described and lactic acidosis may be due to hypoperfusion due to fluid overload. (2) Diabetes Current Visit: Yes Status: Acute Code(s): E11.9 - TYPE 2 DIABETES MELLITUS WITHOUT COMPLICATIONS SNOMED Code(s): 36212561 Comment: Continue Lispro by SS on achs schedule. As she will not be resuming metformin, will assess for another oral regimen when she is on a full diet. (3) Lactic acidosis Current Visit: Yes Status: Acute Code(s): E87.2 - ACIDOSIS SNOMED Code(s) : 27219967 Comment: -Possible due to metformin, now listed as adverse reaction -May also be due to hypoperfusion and cardiac workload due to CHF exacerbation as described -Will repeat levels in AM (4) JUNIOR (obstructive sleep apnea) Current Visit: Yes Status: Acute Code(s): G47.33 - OBSTRUCTIVE SLEEP APNEA ( ADULT) (PEDIATRIC) SNOMED Code(s): 23005066 Comment: Family will bring in her own CPAP. She does well with the [facility] equipment. (5) Morbid obesity Current Visit: Yes Status: Acute Code(s): E66.01 - MORBID (SEVERE) OBESITY DUE TO EXCESS CALORIES SNOMED Code(s): 338277513 Comment: BMI 52.4. (6) Incarcerated ventral hernia Current Visit: Yes Status: Acute Code(s): K43.6 - OTHER AND UNSP VENTRAL HERNIA WITH OBSTRUCTION, W/O GANGRENE SNOMED Code(s): 695123510 Comment: -S/P repair 09/11/18 [place]. -Defer perioperative care w/Surgical team (7) DVT prophylaxis Current Visit: Yes Status: Acute Code(s): [id number] - SNOMED Code(s): 782629277 Comment: -Continue Heparin [id number] Status and Disposition: For possible transfer to floors in AM if consistently off of BiPAP
[2018-09-14] MEDS ORDERED: LORazepam INJ* 2 MG/ML 1 ML VIAL IV PUSH ONE (21:00)
[2018-09-15 05:18] LABS: ABS Basophils 0 10^3/ul (0-0.2); ABS Eosinophils 0.1 10^3/ul (0-0.6); ABS Lymphocytes 0.8 10^3/ul (1.0-4.8); ABS Monocytes 0.3 10^3/ul (0-0.8); ABS Neutrophils 7.1 10^3/ul (1.5-7.7); ABS Nucleated RBC 0 10^3/ul; Eosinophil % 1.4 %; Hematocrit 32 % (35-47); Hemoglobin 10.5 g/dl (12.0-16.0); Lymphocyte % 9.5 %; Mean Corpuscular HGB Conc 33 g/dl (31-36); Mean Corpuscular Hemoglobin 28 pg (27-31); Mean Corpuscular Volume 85 fL (80-97); Nucleated Red Blood Cells % 0; Platelet Count 186 10^3/ul (150-450); Red Blood Count 3.73 10^6/ul (4.00-5.40); Red Cell Distribution Width 15 % (10.5-15); White Blood Count 8.3 10^3/ul (3.5-10.8)
[2018-09-15 05:33] LABS: Albumin 2.9 g/dL (3.2-5.2); Albumin/Globulin Ratio 0.9 (1-3); BUN/Creatinine Ratio 40.9 (8-20); Calcium 9.1 mg/dL (8.6-10.3); Globulin 3.1 g/dL (2-4); Phosphorus 1.3 mg/dL (2.5-5.0); Potassium 3.7 mmol/L (3.5-5.0); Total Bilirubin 0.4 mg/dL (0.2-1.0)
[2018-09-15] MEDS ORDERED: LORazepam INJ* 2 MG/ML 1 ML VIAL IV PUSH ONE (05:42)
[2018-09-15] MEDS: Heparin VIAL(*) 5000 UNITS/ML VIAL (FIVE THOUSAND) SUBCUT SCH ×3 (05:58→21:06)
[2018-09-15] MEDS: Insulin REGULAR(*) 1 UNITS UNIT SUBCUT SCH ×5 (07:46→21:06)
[2018-09-15] MEDS: Furosemide IV* 10 MG/ML VIAL (40 MG) IV SCH ×2 (09:07→19:52)
[2018-09-15] MEDS: Magnesium Hydroxide LIQ* 30 ML UDC PO SCH ×2 (09:07→19:59)
[2018-09-15] MEDS: FLUoxetine CAP* 20 MG PO SCH (09:08)
[2018-09-15] MEDS: Nystatin TOP POWDER* 15 GM BTL TOPICAL SCH ×3 (09:08→21:19)
[2018-09-15] MEDS ORDERED: Potassium Phosphate IV* 15 MMOLE in NS 0.9% 250 ML* 250 ML IVPB ONE (09:30)
--- NOTE | 2018-09-15 10:41 | PN ---
Progress Note - Progress Note Date of Service: 09/15/18 Note: POD#4 s/p ventral hernia Afeb, VS noted Hugh po's No emesis Passing stool and urine--incontinent at times Pain control OK Abd obese, soft, sore, mild ecchymosis at incision No seroma or infection Impr: Recovering well from hernia repair Remaining problems seem to be respiratory, cardiac and DM. Advance diet Disc w/ Dr Brito--will transfer to hospitalist service. Discharge when medically able F/U surgical office approx 1 week.
[2018-09-15] MEDS: HYDROmorphone INJ1* 1 MG/ML SYRINGE IV PRN (14:08)
[2018-09-15] MEDS: hydrOXYzine HCL TAB* 50 MG PO PRN ×2 (14:17→19:52)
--- NOTE | 2018-09-15 14:58 | PN ---
Subjective Date of Service: 09/15/18 Interval History: Pt seen and examined. Meds and labs reviewed. CC: N/A ROS: Denied PRINGLE/dizziness, F/C, N/V, CP, SOB, increased cough, sputum production , abd pain, diarrhea, constipation, dysuria, myalgias, arthralgias, throat pain , and new skin lesions. The rest of the 14 point ROS are unremarkable. PHYSICAL EXAM: GEN APPEARANCE: Awake, not in acute distress HEENT: NC/AT, PERRLA, moist oral mucosa, (-) throat erythema NECK: Soft, supple, (-) cervical LAD, (-)JVD HEART: S1S2 WNL, RRR, No MRG CHEST: CTA, BL, GAE, No W/R/R ABD: Soft, ND/appropriately tender post-op abd, NABS 4x Q EXT: No C/C/E SKIN: Warm to touch PSYCH: No active psychosis, hallucinations, depression, SI/HI Objective Active Medications: Albuterol (Ventolin Hfa Inhaler*) 2 puff INH Q4H PRN PRN Reason: SOB/WHEEZING Albuterol/Ipratropium (Duoneb (Albuterol 2.5 Mg/Ipratropium 0.5 Mg)) 1 neb INH Q4H PRN PRN Reason: SOB/WHEEZING Last Admin: 09/14/18 16:45 Dose: 1 neb Fluoxetine HCl (Prozac Cap*) 40 mg PO DAILY [facility] Last Admin: 09/15/18 09:08 Dose: 40 mg Furosemide (Lasix Iv*) 40 mg IV BID [facility] Last Admin: 09/15/18 09:07 Dose: 40 mg Heparin Sodium (Porcine) (Heparin Vial(*)) 5,000 units SUBCUT Q8HR [facility] Last Admin: 09/15/18 14:08 Dose: 5,000 units Hydromorphone HCl (Dilaudid Inj1s*) 0.5 mg IV Q1H PRN PRN Reason: Pain - severe Last Admin: 09/15/18 14:08 Dose: 0.5 mg Hydroxyzine HCl (Atarax Tab*) 50 mg PO Q4H PRN PRN Reason: ANXIETY Last Admin: 09/15/18 14:17 Dose: 50 mg Potassium Phosphate 15 mmole/ (Sodium Chloride) 255 mls @ 42 mls/hr IVPB ONCE ONE Stop: 09/15/18 15:34 Last Admin: 09/15/18 12:33 Dose: 42 mls/hr Insulin Human Regular (Insulin Regular(*)) 0 units SUBCUT 0730,1130,1630,2100 [facility]; Protocol Last Admin: 09/15/18 12:34 Dose: 3 units Magnesium Hydroxide (Milk Of Magnsheree Liq*) 30 ml PO BID CHARLES Last Admin: 09/15/18 09:07 Dose: Not Given Nystatin (Nystatin Top Powder*) 1 applic TOPICAL TID PRN PRN Reason: RASH Stop: 09/19/18 08:37 Nystatin (Nystatin Top Powder*) 1 applic TOPICAL TID CHARLES Stop: 09/28/18 13:59 Last Admin: 09/15/18 14:17 Dose: Not Given Ondansetron HCl (Zofran Inj*) 4 mg IV Q6H PRN PRN Reason: NAUSEA Vital Signs - 8 hr 09/15/18 09/15/18 09/15/18 07:00 07:01 07:38 Temperature 97.7 F Pulse Rate 65 65 Respiratory 19 18 Rate Blood Pressure 124/58 (mmHg) O2 Sat by Pulse 93 91 Oximetry 09/15/18 09/15/18 09/15/18 08:00 08:01 09:00 Temperature Pulse Rate 65 63 65 Respiratory 17 17 24 Rate Blood Pressure 126/53 139/66 (mmHg) O2 Sat by Pulse 92 93 98 Oximetry 09/15/18 09/15/18 09/15/18 10:00 11:00 11:01 Temperature Pulse Rate 67 65 68 Respiratory 26 24 17 Rate Blood Pressure 148/80 (mmHg) O2 Sat by Pulse 97 100 100 Oximetry 09/15/18 09/15/18 09/15/18 11:44 14:08 14:27 Temperature 97.1 F Pulse Rate 65 Respiratory 20 20 22 Rate Blood Pressure 109/64 (mmHg) O2 Sat by Pulse 100 Oximetry Oxygen Devices in Use Now: Nasal Cannula Result Diagrams: 09/15/18 05:05 09/15/18 05:05 Additional Lab and Data: Lab Results 09/11/18 09/11/18 09/11/18 Range/Units 19:12 19:12 19:12 WBC 11.0 H (3.5-10.8) 10^3/ul RBC 4.77 (4.00-5.40) 10^6/ul Hgb 13.2 (12.0-16.0) g/dl Hct 40 (35-47) % MCV 85 (80-97) fL MCH 28 (27-31) pg MCHC 33 (31-36) g/dl RDW 15 (10.5-15) % Plt Count 208 (150-450) 10^3/ul MPV 8.5 (7.4-10.4) fL Neut % (Auto) 90.1 % Lymph % (Auto) 7.0 % Price % (Auto) 2.1 % Eos % (Auto) 0.1 % Baso % (Auto) 0.7 % Absolute Neuts (auto) 9.9 H (1.5-7.7) 10^3/ul Absolute Lymphs (auto) 0.8 L (1.0-4.8) 10^3/ul Absolute Monos (auto) 0.2 (0-0.8) 10^3/ul Absolute Eos (auto) 0 (0-0.6) 10^3/ul Absolute Basos (auto) 0.1 (0-0.2) 10^3/ul Absolute Nucleated RBC 0 10^3/ul Nucleated RBC % 0 VBG pH (7.32-7.43) VBG pCO2 (41-51) mmHg VBG pO2 (35-45) mmHg VBG HCO3 (24-28) mmol/L VBG O2 Saturation (70-80) % VBG Base Excess (0.0-4.0) mmol/L Sodium 139 (135-145) mmol/L Potassium 3.9 (3.5-5.0) mmol/L Chloride 100 L (101-111) mmol/L Carbon Dioxide 26 (22-32) mmol/L Anion Gap 13 H (2-11) mmol/L BUN 31 H (6-24) mg/dL Creatinine 0.89 (0.51-0.95) mg/dL Est GFR ( Amer) 75.2 (>60) Est GFR (Non-Af Amer) 62.2 (>60) BUN/Creatinine Ratio 34.8 H (8-20) Glucose 207 H (70-100) mg/dL Lactic Acid 3.7 H* (0.5-2.0) mmol/L Calcium 9.8 (8.6-10.3) mg/dL Total Bilirubin 0.30 (0.2-1.0) mg/dL AST 18 (13-39) U/L ALT 14 (7-52) U/L Alkaline Phosphatase 72 (34-104) U/L C-Reactive Protein 16.57 H (<8.01) mg/L Total Protein 7.6 (6.4-8.9) g/dL Albumin 4.2 (3.2-5.2) g/dL Globulin 3.4 (2-4) g/dL Albumin/Globulin Ratio 1.2 (1-3) Lipase 13 (11.0-82.0) U/L 12//18 Range/Units 20:18 WBC (3.5-10.8) 10^3/ul RBC (4.00-5.40) 10^6/ul Hgb (12.0-16.0) g/dl Hct (35-47) % MCV (80-97) fL MCH (27-31) pg MCHC (31-36) g/dl RDW (10.5-15) % Plt Count (150-450) 10^3/ul MPV (7.4-10.4) fL Neut % (Auto) % Lymph % (Auto) % Price % (Auto) % Eos % (Auto) % Baso % (Auto) % Absolute Neuts (auto) (1.5-7.7) 10^3/ul Absolute Lymphs (auto) (1.0-4.8) 10^3/ul Absolute Monos (auto) (0-0.8) 10^3/ul Absolute Eos (auto) (0-0.6) 10^3/ul Absolute Basos (auto) (0-0.2) 10^3/ul Absolute Nucleated RBC 10^3/ul Nucleated RBC % VBG pH 7.31 L (7.32-7.43) VBG pCO2 54 H (41-51) mmHg VBG pO2 < 38.0 (35-45) mmHg VBG HCO3 23.8 L (24-28) mmol/L VBG O2 Saturation 56.3 L (70-80) % VBG Base Excess 0.0 (0.0-4.0) mmol/L Sodium (135-145) mmol/L Potassium (3.5-5.0) mmol/L Chloride (101-111) mmol/L Carbon Dioxide (22-32) mmol/L Anion Gap (2-11) mmol/L BUN (6-24) mg/dL Creatinine (0.51-0.95) mg/dL Est GFR ( Amer) (>60) Est GFR (Non-Af Amer) (>60) BUN/Creatinine Ratio (8-20) Glucose (70-100) mg/dL Lactic Acid (0.5-2.0) mmol/L Calcium (8.6-10.3) mg/dL Total Bilirubin (0.2-1.0) mg/dL AST (13-39) U/L ALT (7-52) U/L Alkaline Phosphatase (34-104) U/L C-Reactive Protein (<8.01) mg/L Total Protein (6.4-8.9) g/dL Albumin (3.2-5.2) g/dL Globulin (2-4) g/dL Albumin/Globulin Ratio (1-3) Lipase (11.0-82.0) U/L Microbiology and Other Data: Microbiology 09/12/18 02:05 Nasal Screen MRSA (PCR) - Final Nasal Mrsa Not Detected EKG Data: ns 1st avb qtc is 493 Assess/Plan/Problems-Billing Plan By Medical Problem: this is a 73 yr old wf with hx of morbid obesity junior copd on 24/7 oxygen had incarcerated ventral hernia repair. medicine was called to optimized pt for surgery and medical mgt afterwards. pt was able to be extubated and put on bipap 1. incarerated ventral hernia s/p surgery continue pain meds and zofran, abx, iv fluid as per surgery still npo surgery f/u 2. copd junior ---> asked family to bring her home cpap in case she can be titrated to her home setting - duoneb prn oxygen as per protocol 3 type ii dm - still npo on metofrmin at home----> will continue insulin ss q 6 while npo 4 elevated lactic acid level since admission was 3.7 on admission slightly increased to 4.0 - will recycle lactic acid level until it reaches normal level - continue iv abx zosyn as per surgery 5 decreased urine outpt despite of ivf ns lr 100 cc 500 cc ns given - will order echo for later need of ivf VTE PPX: heparin as per surgery Diet: npo still as per surgery Code Status: full Admission Status and Rationale: - Patient Problems (1) Respiratory distress Current Visit: Yes Status: Acute Code(s): R06.03 - ACUTE RESPIRATORY DISTRESS SNOMED Code(s): 930535236 Comment: -Improved; not requiring BiPAP; although on CPAP at night -Likely due to diastolic CHF exacerbation, primarily right sided likely cause of only mildly elevated BNP -Consistent w/pts complaint of orthopnea -Continue IV lasix -ABG reveals combined respiratory and metabolic acidosis; where NAGMA is likely due to post-hypocapnia due to pts tachypnea causing bicarbonate loss renally. -Lactic acidosis has improved with no improvement of pH and pt continues to have normal anion gap; although contributing, unlikely to explain combined acid- base disorder as described and lactic acidosis may be due to hypoperfusion due to fluid overload in addition incarcerated hernia on presentation---lactic acid is now normal (2) Diabetes Current Visit: Yes Status: Acute Code(s): E11.9 - TYPE 2 DIABETES MELLITUS WITHOUT COMPLICATIONS SNOMED Code(s): 24864136 Comment: Continue Lispro by SS on achs schedule. As she will not be resuming metformin, will assess for another oral regimen when she is on a full diet. (3) Lactic acidosis Current Visit: Yes Status: Acute Code(s): E87.2 - ACIDOSIS SNOMED Code(s) : 30941035 Comment: -Possible due to metformin, however, also presented with incarcerated hernia which can certainly cause its elevation, now listed as adverse reaction -May also be due to hypoperfusion and cardiac workload due to CHF exacerbation as described (4) JUNIOR (obstructive sleep apnea) Current Visit: Yes Status: Acute Code(s): G47.33 - OBSTRUCTIVE SLEEP APNEA ( ADULT) (PEDIATRIC) SNOMED Code(s): 22312249 Comment: Family will bring in her own CPAP. She does well with the hopital equipment. (5) Morbid obesity Current Visit: Yes Status: Acute Code(s): E66.01 - MORBID (SEVERE) OBESITY DUE TO EXCESS CALORIES SNOMED Code(s): 658572516 Comment: BMI 52.4. (6) Incarcerated ventral hernia Current Visit: Yes Status: Acute Code(s): K43.6 - OTHER AND UNSP VENTRAL HERNIA WITH OBSTRUCTION, W/O GANGRENE SNOMED Code(s): 993349292 Comment: -S/P repair 09/11/18 near [place]. -Defer perioperative care w/Surgical team (7) DVT prophylaxis Current Visit: Yes Status: Acute Code(s): JHL2462 - SNOMED Code(s): 532515006 Comment: -Continue Heparin [id number] Status and Disposition: -Continue PT and will await any further reccomendations
[2018-09-16] MEDS: hydrOXYzine HCL TAB* 50 MG PO PRN ×3 (02:36→22:04)
[2018-09-16] MEDS: Heparin VIAL(*) 5000 UNITS/ML VIAL (FIVE THOUSAND) SUBCUT SCH ×3 (05:26→21:13)
[2018-09-16 06:09] LABS: Hematocrit 32 % (35-47); Hemoglobin 10.6 g/dl (12.0-16.0); Mean Corpuscular HGB Conc 33 g/dl (31-36); Mean Corpuscular Hemoglobin 28 pg (27-31); Mean Corpuscular Volume 86 fL (80-97); Mean Platelet Volume 7.7 fL (7.4-10.4); Platelet Count 177 10^3/ul (150-450); Red Blood Count 3.74 10^6/ul (4.00-5.40); Red Cell Distribution Width 15 % (10.5-15); White Blood Count 6.2 10^3/ul (3.5-10.8)
[2018-09-16 06:27] LABS: Albumin 3.1 g/dL (3.2-5.2); BUN/Creatinine Ratio 38.1 (8-20); Calcium 8.8 mg/dL (8.6-10.3); EGFR Non-African American 66.5 (>60); Globulin 3.1 g/dL (2-4); Magnesium 1.7 mg/dL (1.9-2.7); Phosphorus 2.7 mg/dL (2.5-5.0); Potassium 3.7 mmol/L (3.5-5.0); Total Bilirubin 0.3 mg/dL (0.2-1.0); Total Protein 6.2 g/dL (6.4-8.9)
[2018-09-16] MEDS: Insulin REGULAR(*) 1 UNITS UNIT SUBCUT SCH ×4 (07:54→21:14)
--- NOTE | 2018-09-16 07:58 | PN ---
Progress Note - Progress Note Date of Service: 09/16/18 SOAP: Subjective: Pain adequately controlled Tolerating po Passing gas and having loose BM's Objective: Temp Pulse Resp BP Pulse Ox 97.2 F 68 20 142/57 100 09/16/18 07:19 09/16/18 07:19 09/16/18 07:36 09/16/18 07:19 09/16/18 07:19 PEX: Comfortable in chair Abd is soft and non-distended. Bowel sounds are present. Incision is clean and dry, faint ecchymosis inferior to incision-no drainage or warmth. Assessment: S/P ventral hernia repair with mesh for strangulated ventral incisional hernia Plan: Diet as tolerated Increase activity and pulmonary toilet OK for D/C from surgical standpoint-will continue to follow
[2018-09-16] MEDS: Furosemide IV* 10 MG/ML VIAL (40 MG) IV SCH ×2 (08:00→21:15)
[2018-09-16] MEDS: FLUoxetine CAP* 20 MG PO SCH (08:00)
[2018-09-16] MEDS: Nystatin TOP POWDER* 15 GM BTL TOPICAL SCH ×3 (08:00→21:14)
[2018-09-16] MEDS: Magnesium Hydroxide LIQ* 30 ML UDC PO SCH ×2 (08:00→21:14)
[2018-09-16] MEDS ORDERED: Magnesium Sulfate IV* 3 GM in NS 0.9% 100 ML* 100 ML IVPB ONE (09:30)
--- NOTE | 2018-09-16 14:37 | PN ---
Subjective Date of Service: 09/16/18 Interval History: Pt seen and examined. Meds and labs reviewed. CC: Easy fatiguability ROS: Denied PRINGLE/dizziness, F/C, N/V, CP, SOB, increased cough, sputum production , abd pain, diarrhea, constipation, dysuria, myalgias, arthralgias, throat pain , and new skin lesions. The rest of the 14 point ROS are unremarkable. PHYSICAL EXAM: GEN APPEARANCE: Awake, not in acute distress HEENT: NC/AT, PERRLA, moist oral mucosa, (-) throat erythema NECK: Soft, supple, (-) cervical LAD, (-)JVD HEART: S1S2 WNL, RRR, No MRG CHEST: CTA, BL, GAE, No W/R/R ABD: Soft, ND/appropriately tender post-op abd, NABS 4x Q EXT: No C/C/E SKIN: Warm to touch PSYCH: No active psychosis, hallucinations, depression, SI/HI Objective Active Medications: Albuterol (Ventolin Hfa Inhaler*) 2 puff INH Q4H PRN PRN Reason: SOB/WHEEZING Albuterol/Ipratropium (Duoneb (Albuterol 2.5 Mg/Ipratropium 0.5 Mg)) 1 neb INH Q4H PRN PRN Reason: SOB/WHEEZING Last Admin: 09/14/18 16:45 Dose: 1 neb Fluoxetine HCl (Prozac Cap*) 40 mg PO DAILY [facility] Last Admin: 09/16/18 08:00 Dose: 40 mg Furosemide (Lasix Iv*) 40 mg IV BID [facility] Last Admin: 09/16/18 08:00 Dose: 40 mg Heparin Sodium (Porcine) (Heparin Vial(*)) 5,000 units SUBCUT Q8HR [facility] Last Admin: 09/16/18 12:56 Dose: 5,000 units Hydromorphone HCl (Dilaudid Inj1s*) 0.5 mg IV Q1H PRN PRN Reason: Pain - severe Last Admin: 09/15/18 14:08 Dose: 0.5 mg Hydroxyzine HCl (Atarax Tab*) 50 mg PO Q4H PRN PRN Reason: ANXIETY Last Admin: 09/16/18 02:36 Dose: 50 mg Insulin Human Regular (Insulin Regular(*)) 0 units SUBCUT 0730,1130,1630,2100 [facility]; Protocol Last Admin: 09/16/18 11:29 Dose: Not Given Magnesium Hydroxide (Milk Of Magnsheree Liq*) 30 ml PO BID [facility] Last Admin: 09/16/18 08:00 Dose: Not Given Nystatin (Nystatin Top Powder*) 1 applic TOPICAL TID PRN PRN Reason: RASH Stop: 09/19/18 08:37 Nystatin (Nystatin Top Powder*) 1 applic TOPICAL TID CHARLES Stop: 09/28/18 13:59 Last Admin: 09/16/18 12:55 Dose: 1 applic Ondansetron HCl (Zofran Inj*) 4 mg IV Q6H PRN PRN Reason: NAUSEA Vital Signs - 8 hr 09/16/18 09/16/18 09/16/18 07:19 07:36 11:07 Temperature 97.2 F 97.6 F Pulse Rate 68 63 Respiratory 20 20 20 Rate Blood Pressure 142/57 155/45 (mmHg) O2 Sat by Pulse 100 100 Oximetry Oxygen Devices in Use Now: Nasal Cannula Result Diagrams: 09/16/18 06:01 09/16/18 06:01 Additional Lab and Data: Lab Results 09/11/18 09/11/18 09/11/18 Range/Units 19:12 19:12 19:12 WBC 11.0 H (3.5-10.8) 10^3/ul RBC 4.77 (4.00-5.40) 10^6/ul Hgb 13.2 (12.0-16.0) g/dl Hct 40 (35-47) % MCV 85 (80-97) fL MCH 28 (27-31) pg MCHC 33 (31-36) g/dl RDW 15 (10.5-15) % Plt Count 208 (150-450) 10^3/ul MPV 8.5 (7.4-10.4) fL Neut % (Auto) 90.1 % Lymph % (Auto) 7.0 % Mcpherson % (Auto) 2.1 % Eos % (Auto) 0.1 % Baso % (Auto) 0.7 % Absolute Neuts (auto) 9.9 H (1.5-7.7) 10^3/ul Absolute Lymphs (auto) 0.8 L (1.0-4.8) 10^3/ul Absolute Monos (auto) 0.2 (0-0.8) 10^3/ul Absolute Eos (auto) 0 (0-0.6) 10^3/ul Absolute Basos (auto) 0.1 (0-0.2) 10^3/ul Absolute Nucleated RBC 0 10^3/ul Nucleated RBC % 0 VBG pH (7.32-7.43) VBG pCO2 (41-51) mmHg VBG pO2 (35-45) mmHg VBG HCO3 (24-28) mmol/L VBG O2 Saturation (70-80) % VBG Base Excess (0.0-4.0) mmol/L Sodium 139 (135-145) mmol/L Potassium 3.9 (3.5-5.0) mmol/L Chloride 100 L (101-111) mmol/L Carbon Dioxide 26 (22-32) mmol/L Anion Gap 13 H (2-11) mmol/L BUN 31 H (6-24) mg/dL Creatinine 0.89 (0.51-0.95) mg/dL Est GFR ( Amer) 75.2 (>60) Est GFR (Non-Af Amer) 62.2 (>60) BUN/Creatinine Ratio 34.8 H (8-20) Glucose 207 H (70-100) mg/dL Lactic Acid 3.7 H* (0.5-2.0) mmol/L Calcium 9.8 (8.6-10.3) mg/dL Total Bilirubin 0.30 (0.2-1.0) mg/dL AST 18 (13-39) U/L ALT 14 (7-52) U/L Alkaline Phosphatase 72 (34-104) U/L C-Reactive Protein 16.57 H (<8.01) mg/L Total Protein 7.6 (6.4-8.9) g/dL Albumin 4.2 (3.2-5.2) g/dL Globulin 3.4 (2-4) g/dL Albumin/Globulin Ratio 1.2 (1-3) Lipase 13 (11.0-82.0) U/L 09/11/ Range/Units 20:18 WBC (3.5-10.8) 10^3/ul RBC (4.00-5.40) 10^6/ul Hgb (12.0-16.0) g/dl Hct (35-47) % MCV (80-97) fL MCH (27-31) pg MCHC (31-36) g/dl RDW (10.5-15) % Plt Count (150-450) 10^3/ul MPV (7.4-10.4) fL Neut % (Auto) % Lymph % (Auto) % Mcpherson % (Auto) % Eos % (Auto) % Baso % (Auto) % Absolute Neuts (auto) (1.5-7.7) 10^3/ul Absolute Lymphs (auto) (1.0-4.8) 10^3/ul Absolute Monos (auto) (0-0.8) 10^3/ul Absolute Eos (auto) (0-0.6) 10^3/ul Absolute Basos (auto) (0-0.2) 10^3/ul Absolute Nucleated RBC 10^3/ul Nucleated RBC % VBG pH 7.31 L (7.32-7.43) VBG pCO2 54 H (41-51) mmHg VBG pO2 < 38.0 (35-45) mmHg VBG HCO3 23.8 L (24-28) mmol/L VBG O2 Saturation 56.3 L (70-80) % VBG Base Excess 0.0 (0.0-4.0) mmol/L Sodium (135-145) mmol/L Potassium (3.5-5.0) mmol/L Chloride (101-111) mmol/L Carbon Dioxide (22-32) mmol/L Anion Gap (2-11) mmol/L BUN (6-24) mg/dL Creatinine (0.51-0.95) mg/dL Est GFR ( Amer) (>60) Est GFR (Non-Af Amer) (>60) BUN/Creatinine Ratio (8-20) Glucose (70-100) mg/dL Lactic Acid (0.5-2.0) mmol/L Calcium (8.6-10.3) mg/dL Total Bilirubin (0.2-1.0) mg/dL AST (13-39) U/L ALT (7-52) U/L Alkaline Phosphatase (34-104) U/L C-Reactive Protein (<8.01) mg/L Total Protein (6.4-8.9) g/dL Albumin (3.2-5.2) g/dL Globulin (2-4) g/dL Albumin/Globulin Ratio (1-3) Lipase (11.0-82.0) U/L Microbiology and Other Data: Microbiology 09/12/18 02:05 Nasal Screen MRSA (PCR) - Final Nasal Mrsa Not Detected EKG Data: ns 1st avb qtc is 493 Assess/Plan/Problems-Billing Plan By Medical Problem: this is a 73 yr old wf with hx of morbid obesity junior copd on 11/04 oxygen had incarcerated ventral hernia repair. medicine was called to optimized pt for surgery and medical mgt afterwards. pt was able to be extubated and put on bipap 1. incarerated ventral hernia s/p surgery continue pain meds and zofran, abx, iv fluid as per surgery still npo surgery f/u 2. copd junior ---> asked family to bring her home cpap in case she can be titrated to her home setting - duoneb prn oxygen as per protocol 3 type ii dm - still npo on metofrmin at home----> will continue insulin ss q 6 while npo 4 elevated lactic acid level since admission was 3.7 on admission slightly increased to 4.0 - will recycle lactic acid level until it reaches normal level - continue iv abx zosyn as per surgery 5 decreased urine outpt despite of ivf ns lr 100 cc 500 cc ns given - will order echo for later need of ivf VTE PPX: heparin as per surgery Diet: npo still as per surgery Code Status: full Admission Status and Rationale: - Patient Problems (1) Respiratory distress Current Visit: Yes Status: Acute Code(s): R06.03 - ACUTE RESPIRATORY DISTRESS SNOMED Code(s): 537737576 Comment: -Resolved; not requiring BiPAP; although on CPAP at night for JUNIOR -Pt is currently at 4L NC but only at 2L at home---currently still not at baseline, but much improved -Likely due to diastolic CHF exacerbation, primarily right sided likely cause of only mildly elevated BNP -Consistent w/pts complaint of orthopnea -Continue IV lasix -ABG reveals combined respiratory and metabolic acidosis; where NAGMA is likely due to post-hypocapnia due to pts tachypnea causing bicarbonate loss renally. -Lactic acidosis has improved with no improvement of pH and pt continues to have normal anion gap; although contributing, unlikely to explain combined acid- base disorder as described and lactic acidosis may be due to hypoperfusion due to fluid overload in addition incarcerated hernia on presentation---lactic acid is now normal -For ambulatory sats in AM (2) Diabetes Current Visit: Yes Status: Acute Code(s): E11.9 - TYPE 2 DIABETES MELLITUS WITHOUT COMPLICATIONS SNOMED Code(s): 73887307 Comment: Continue Lispro by SS on achs schedule. As she will not be resuming metformin, will assess for another oral regimen when she is on a full diet. (3) Lactic acidosis Current Visit: Yes Status: Acute Code(s): E87.2 - ACIDOSIS SNOMED Code(s) : 95987693 Comment: -Possible due to metformin, however, also presented with incarcerated hernia which can certainly cause its elevation, now listed as adverse reaction -May also be due to hypoperfusion and cardiac workload due to CHF exacerbation as described (4) JUNIOR (obstructive sleep apnea) Current Visit: Yes Status: Acute Code(s): G47.33 - OBSTRUCTIVE SLEEP APNEA ( ADULT) (PEDIATRIC) SNOMED Code(s): 62763345 Comment: Family will bring in her own CPAP. [facility] (5) Morbid obesity Current Visit: Yes Status: Acute Code(s): E66.01 - MORBID (SEVERE) OBESITY DUE TO EXCESS CALORIES SNOMED Code(s): 563617169 Comment: BMI 52.4. (6) Incarcerated ventral hernia Current Visit: Yes Status: Acute Code(s): K43.6 - OTHER AND UNSP VENTRAL HERNIA WITH OBSTRUCTION, W/O GANGRENE SNOMED Code(s): 713715406 Comment: -S/P repair 09/11/18 near [place]. -Defer perioperative care w/Surgical team (7) DVT prophylaxis Current Visit: Yes Status: Acute Code(s): OTG9369 - SNOMED Code(s): 318765978 Comment: -Continue Heparin SQq8H Status and Disposition: -Continue PT and will await any further recommendations -For ambulatory sats in AM -For possible D/C in AM or Tuesday
[2018-09-16] MEDS: HYDROmorphone INJ1* 1 MG/ML SYRINGE IV PRN (19:17)
[2018-09-17] MEDS: HYDROmorphone INJ1* 1 MG/ML SYRINGE IV PRN (02:33)
[2018-09-17] MEDS: Heparin VIAL(*) 5000 UNITS/ML VIAL (FIVE THOUSAND) SUBCUT SCH ×3 (06:14→21:53)
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
[2018-09-17] MEDS ORDERED: Spiriva Inhaler DEVICE* 1 EACH DEVICE SCH (08:00)
[2018-09-17] MEDS: Insulin REGULAR(*) 1 UNITS UNIT SUBCUT SCH ×4 (08:17→21:54)
[2018-09-17] MEDS: Mometasone/Formoter 200/5 MDI INH SCH ×2 (08:33→19:52)
[2018-09-17] MEDS: Tiotropium CAP.INH* CAP.INH/18 MCG (USE ORDER SET !) INH SCH (08:33)
[2018-09-17] MEDS: Magnesium Hydroxide LIQ* 30 ML UDC PO SCH ×2 (08:43→21:53)
[2018-09-17] MEDS: Furosemide IV* 10 MG/ML VIAL (40 MG) IV SCH ×2 (09:03→21:53)
[2018-09-17] MEDS: Nystatin TOP POWDER* 15 GM BTL TOPICAL SCH ×3 (09:03→21:54)
--- NOTE | 2018-09-17 12:16 | PN ---
Progress Note - Progress Note Date of Service: 09/17/18 Note: Surgery Progress Note: S: Patient was transferred to ICU this morning for altered mental status, agitation, hypercarbia. Currently much more oriented, answers questions appropriately. No abdominal pain. Having flatus and BM. O: Vital Signs: Temp Pulse Resp BP Pulse Ox 96.6 F 65 22 148/60 94 09/17/18 12:00 09/17/18 11:01 09/17/18 11:01 09/17/18 11:01 09/17/18 11:01 Laboratory Results - last 24 hr 09/16/18 09/16/18 09/17/18 16:07 21:00 07:00 Patient Temperature Not Reportable ABG pH 7.32 L ABG pH (Temp Correct) Not Reportable ABG pCO2 76 H* ABG pCO2 (Temp Corrct Not Reportable ABG pO2 107 H ABG pO2 (Temp Correct Not Reportable ABG HCO3 32.6 H ABG O2 Saturation 98.0 ABG Base Excess 9.9 H Respiration Rate Not Reportable O2 Delivery Device N/c Ventilator Type Not Reportable Vent Mode Not Reportable FiO2 Not Reportable Inspiratory Time Not Reportable PEEP Not Reportable Pressure Support Not Reportable Pressure Control Not Reportable EPAP Not Reportable IPAP Not Reportable BiPAP Not Reportable POC Glucose (mg/dL) 159 H 190 H 09/17/18 09/17/18 09/17/18 07:17 10:40 11:16 Patient Temperature Not Reportable ABG pH 7.43 ABG pH (Temp Correct) Not Reportable ABG pCO2 60 H ABG pCO2 (Temp Corrct Not Reportable ABG pO2 98 ABG pO2 (Temp Correct Not Reportable ABG HCO3 34.9 H ABG O2 Saturation 97.0 ABG Base Excess 12.8 H Respiration Rate Not Reportable O2 Delivery Device bipap Ventilator Type Not Reportable Vent Mode Not Reportable FiO2 35 Inspiratory Time Not Reportable PEEP Not Reportable Pressure Support Not Reportable Pressure Control Not Reportable EPAP 9 IPAP 13 BiPAP Not Reportable POC Glucose (mg/dL) 155 H 73 Intake & Output 09/16/18 09/17/18 09/17/18 22:59 06:59 14:59 Intake Total 0 Balance 0 Intake: Oral 0 Other: Estimated Void Large # Bowel Movements 0 # Voids 1 3 Physical exam: Abd- obese, NTND, incision c/d/i, minimal ecchymosis at lower incision, no discharge A/P: 73 F post op open ventral hernia repair with hypercarbic respiratory failure - Doing well from a post operative perspective. Incision looks excellent, patient tolerating diet and having bowel function - Continue medical care for respiratory failure, per medical team
[2018-09-17] MEDS: hydrOXYzine HCL TAB* 50 MG PO PRN (23:56)
[2018-09-17] MEDS: FLUoxetine CAP* 20 MG PO SCH (23:57)
[2018-09-18] MEDS: HYDROmorphone INJ1* 1 MG/ML SYRINGE IV PRN (01:20)
[2018-09-18] MEDS: Heparin VIAL(*) 5000 UNITS/ML VIAL (FIVE THOUSAND) SUBCUT SCH ×3 (06:44→21:27)
[2018-09-18] MEDS: FLUoxetine CAP* 20 MG PO SCH ×2 (07:31→12:57)
[2018-09-18] MEDS: Magnesium Hydroxide LIQ* 30 ML UDC PO SCH ×2 (07:32→21:33)
[2018-09-18] MEDS: Furosemide IV* 10 MG/ML VIAL (40 MG) IV SCH (07:32)
[2018-09-18] MEDS: Insulin REGULAR(*) 1 UNITS UNIT SUBCUT SCH ×4 (07:45→21:46)
[2018-09-18] MEDS ORDERED: oxyCODONE/Acetamin 5/325 MG* TAB PO PRN (07:47)
[2018-09-18] MEDS ORDERED: hydrOXYzine HCL TAB* 50 MG PO PRN (07:48)
[2018-09-18] MEDS ORDERED: Morphine VIAL* 4 MG/ML VIAL (1 ml vial) IV PRN (07:48)
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
[2018-09-18] MEDS: Mometasone/Formoter 200/5 MDI INH SCH ×2 (07:57→19:48)
[2018-09-18] MEDS: Tiotropium CAP.INH* CAP.INH/18 MCG (USE ORDER SET !) INH SCH (07:57)
[2018-09-18] MEDS: Nystatin TOP POWDER* 15 GM BTL TOPICAL SCH ×3 (08:08→21:29)
[2018-09-18] MEDS: Furosemide IV* 10 MG/ML VIAL (40 MG) IV SLOW PU SCH (09:36)
[2018-09-18] MEDS: Acetaminophen TAB* 325 MG PO PRN ×2 (14:11→21:51)
[2018-09-19] MEDS: Acetaminophen TAB* 325 MG PO PRN ×3 (03:33→21:44)
[2018-09-19] MEDS: Heparin VIAL(*) 5000 UNITS/ML VIAL (FIVE THOUSAND) SUBCUT SCH ×3 (05:58→21:46)
[2018-09-19] MEDS: Mometasone/Formoter 200/5 MDI INH SCH (07:46)
[2018-09-19] MEDS: Tiotropium CAP.INH* CAP.INH/18 MCG (USE ORDER SET !) INH SCH ×2 (07:56→08:36)
[2018-09-19] MEDS: Magnesium Hydroxide LIQ* 30 ML UDC PO SCH (08:01)
[2018-09-19] MEDS: Insulin REGULAR(*) 1 UNITS UNIT SUBCUT SCH (08:34)
[2018-09-19] MEDS: Furosemide IV* 10 MG/ML VIAL (40 MG) IV SLOW PU SCH (09:43)
[2018-09-19] MEDS ORDERED: Dextrose 50% Syringe 50 ML* 25 GM/50 ML SYRINGE IV PUSH PRN (09:44)
[2018-09-19] MEDS ORDERED: Magnesium Hydroxide LIQ* 30 ML UDC PO PRN (09:45)
[2018-09-19] MEDS: FLUoxetine CAP* 20 MG PO SCH ×2 (09:46→09:52)
[2018-09-19] MEDS ORDERED: oxyCODONE/Acetamin 5/325 MG* TAB PO PRN (09:46)
[2018-09-19] MEDS: Nystatin TOP POWDER* 15 GM BTL TOPICAL SCH ×3 (09:47→21:46)
--- NOTE | 2018-09-19 09:47 | PN ---
Progress Note - Progress Note Date of Service: 09/19/18 SOAP: Subjective: Passing flatus. Pain controlled. No N/V. Breathing ok. Anxious to go home tomorrow. Objective: Vital Signs Temp 97.8 F 09/19/18 07:23 Pulse 65 09/19/18 07:23 Resp 17 09/19/18 07:23 BP 136/40 09/19/18 07:23 Pulse Ox 97 09/19/18 07:23 Gen: sitting up in bed; NAD. Abd: incision c/d/i; mild staple line erythema; soft with tenderness in the infraumbilical region. Intake & Output 09/18/18 09/19/18 09/19/18 18:59 06:59 18:59 Intake Total 1020 1200 320 Output Total 2190 525 Balance -1170 675 320 Weight 284 lb 14.4 oz Intake: Oral 1020 1200 320 Output: [place] 2190 525 Other: Date of Last Bowel 09/18/18 09/19/18 Movement # Bowel Movements 1 1 Estimated Stool Amount Small Large Laboratory Results - last 24 hr 09/18/18 09/18/18 09/18/18 07:42 11:34 16:53 POC Glucose (mg/dL) 135 H 167 H 161 H 09/18/18 09/19/18 21:34 07:54 POC Glucose (mg/dL) 138 H 151 H Assessment: POD#7 s/p open VIHR with mesh. Doing well at this point with no surgical issues. Plan: Continue diet. D/c kinney. Ambulate. Home tomorrow.
--- NOTE | 2018-09-19 09:52 | PN ---
Subjective Date of Service: 09/19/18 Interval History: Pt is feeling ok today. She states her back is sore she thinks from the bed and chair, her abdomen is sore but she expects this. She also states she is now having frequent liquid BMs after taking the MOM. She is anxious to go home as soon as possible- we discussed possibly tomorrow. Objective Active Medications: Acetaminophen (Tylenol Tab*) 325 mg PO Q4H PRN PRN Reason: PAIN Last Admin: 09/19/18 03:33 Dose: 325 mg Albuterol (Ventolin Hfa Inhaler*) 2 puff INH Q4H PRN PRN Reason: SOB/WHEEZING Device (Tiotropium Inhaler Device*) 1 each .SEE ORDER .USE w/ SPIRIVA CAPS [facility] Last Admin: 09/19/18 08:35 Dose: 1 each Dextrose (D50w Syringe 50 Ml*) 12.5 gm IV PUSH .FOR FS < 60 - SS PRN PRN Reason: FS < 60 Fluoxetine HCl (Prozac Cap*) 40 mg PO DAILY [facility] Furosemide (Lasix Tab*) 20 mg PO QAM [facility] Heparin Sodium (Porcine) (Heparin Vial(*)) 5,000 units SUBCUT Q8HR [facility] Last Admin: 09/19/18 05:58 Dose: 5,000 units Insulin Human Lispro (Humalog*) 0 units SUBCUT [facility]; Protocol Magnesium Hydroxide (Milk Of Magnesia Liq*) 30 ml PO BID PRN PRN Reason: CONSTIPATION Morphine Sulfate (Morphine Vial*) 2 mg IV Q4H PRN PRN Reason: PAIN Nystatin (Nystatin Top Powder*) 1 applic TOPICAL TID [facility] Stop: 09/28/18 13:59 Last Admin: 09/18/18 21:29 Dose: 1 applic Ondansetron HCl (Zofran Inj*) 4 mg IV Q6H PRN PRN Reason: NAUSEA Oxycodone/Acetaminophen (Percocet 5/325 Tab*) 1 tab PO Q4H PRN PRN Reason: PAIN - MODERATE Tiotropium [place] (Spiriva Cap.Inh*) 1 cap INH DAILY [facility] Last Admin: 09/19/18 08:36 Dose: 1 cap Vital Signs - 8 hr 09/19/18 09/19/18 04:13 07:23 Temperature 98.4 F 97.8 F Pulse Rate 68 65 Respiratory 17 17 Rate Blood Pressure 133/49 136/40 (mmHg) O2 Sat by Pulse 97 97 Oximetry Oxygen Devices in Use Now: Nasal Cannula - 2L Appearance: Elderly morbidly obese female sitting in a chair, NAD Eyes: No Scleral Icterus Ears/Nose/Mouth/Throat: Mucous Membranes Moist Respiratory: Symmetrical Chest Expansion and Respiratory Effort, Clear to Auscultation Cardiovascular: NL Sounds; No Murmurs; No JVD, RRR, No Edema Abdominal: NL Sounds; No Tenderness; No Distention, - - Abdominal incision with minimal surrounding erythema Extremities: No Clubbing, Cyanosis Skin: No Nodules or Sclerosis Neurological: Alert and Oriented x 3 Result Diagrams: 09/16/18 06:01 09/16/18 06:01 Additional Lab and Data: Lab Results 09/11/18 09/11/18 09/11/18 Range/Units 19:12 19:12 19:12 WBC 11.0 H (3.5-10.8) 10^3/ul RBC 4.77 (4.00-5.40) 10^6/ul Hgb 13.2 (12.0-16.0) g/dl Hct 40 (35-47) % MCV 85 (80-97) fL MCH 28 (27-31) pg MCHC 33 (31-36) g/dl RDW 15 (10.5-15) % Plt Count 208 (150-450) 10^3/ul MPV 8.5 (7.4-10.4) fL Neut % (Auto) 90.1 % Lymph % (Auto) 7.0 % [place] % (Auto) 2.1 % Eos % (Auto) 0.1 % Baso % (Auto) 0.7 % Absolute Neuts (auto) 9.9 H (1.5-7.7) 10^3/ul Absolute Lymphs (auto) 0.8 L (1.0-4.8) 10^3/ul Absolute Monos (auto) 0.2 (0-0.8) 10^3/ul Absolute Eos (auto) 0 (0-0.6) 10^3/ul Absolute Basos (auto) 0.1 (0-0.2) 10^3/ul Absolute Nucleated RBC 0 10^3/ul Nucleated RBC % 0 VBG pH (7.32-7.43) VBG pCO2 (41-51) mmHg VBG pO2 (35-45) mmHg VBG HCO3 (24-28) mmol/L VBG O2 Saturation (70-80) % VBG Base Excess (0.0-4.0) mmol/L Sodium 139 (135-145) mmol/L Potassium 3.9 (3.5-5.0) mmol/L Chloride 100 L (101-111) mmol/L Carbon Dioxide 26 (22-32) mmol/L Anion Gap 13 H (2-11) mmol/L BUN 31 H (6-24) mg/dL Creatinine 0.89 (0.51-0.95) mg/dL Est GFR ( Amer) 75.2 (>60) Est GFR (Non-Af Amer) 62.2 (>60) BUN/Creatinine Ratio 34.8 H (8-20) Glucose 207 H (70-100) mg/dL Lactic Acid 3.7 H* (0.5-2.0) mmol/L Calcium 9.8 (8.6-10.3) mg/dL Total Bilirubin 0.30 (0.2-1.0) mg/dL AST 18 (13-39) U/L ALT 14 (7-52) U/L Alkaline Phosphatase 72 (34-104) U/L C-Reactive Protein 16.57 H (<8.01) mg/L Total Protein 7.6 (6.4-8.9) g/dL Albumin 4.2 (3.2-5.2) g/dL Globulin 3.4 (2-4) g/dL Albumin/Globulin Ratio 1.2 (1-3) Lipase 13 (11.0-82.0) U/L 12/24/18 Range/Units 20:18 WBC (3.5-10.8) 10^3/ul RBC (4.00-5.40) 10^6/ul Hgb (12.0-16.0) g/dl Hct (35-47) % MCV (80-97) fL MCH (27-31) pg MCHC (31-36) g/dl RDW (10.5-15) % Plt Count (150-450) 10^3/ul MPV (7.4-10.4) fL Neut % (Auto) % Lymph % (Auto) % [place] % (Auto) % Eos % (Auto) % Baso % (Auto) % Absolute Neuts (auto) (1.5-7.7) 10^3/ul Absolute Lymphs (auto) (1.0-4.8) 10^3/ul Absolute Monos (auto) (0-0.8) 10^3/ul Absolute Eos (auto) (0-0.6) 10^3/ul Absolute Basos (auto) (0-0.2) 10^3/ul Absolute Nucleated RBC 10^3/ul Nucleated RBC % VBG pH 7.31 L (7.32-7.43) VBG pCO2 54 H (41-51) mmHg VBG pO2 < 38.0 (35-45) mmHg VBG HCO3 23.8 L (24-28) mmol/L VBG O2 Saturation 56.3 L (70-80) % VBG Base Excess 0.0 (0.0-4.0) mmol/L Sodium (135-145) mmol/L Potassium (3.5-5.0) mmol/L Chloride (101-111) mmol/L Carbon Dioxide (22-32) mmol/L Anion Gap (2-11) mmol/L BUN (6-24) mg/dL Creatinine (0.51-0.95) mg/dL Est GFR ( Amer) (>60) Est GFR (Non-Af Amer) (>60) BUN/Creatinine Ratio (8-20) Glucose (70-100) mg/dL Lactic Acid (0.5-2.0) mmol/L Calcium (8.6-10.3) mg/dL Total Bilirubin (0.2-1.0) mg/dL AST (13-39) U/L ALT (7-52) U/L Alkaline Phosphatase (34-104) U/L C-Reactive Protein (<8.01) mg/L Total Protein (6.4-8.9) g/dL Albumin (3.2-5.2) g/dL Globulin (2-4) g/dL Albumin/Globulin Ratio (1-3) Lipase (11.0-82.0) U/L Microbiology and Other Data: Microbiology 09/12/18 02:05 Nasal Screen MRSA (PCR) - Final Nasal Mrsa Not Detected EKG Data: ns 1st avb qtc is 493 Assess/Plan/Problems-Billing Ms Menendez is a 73yo F who has a hx of morbid obesity, thao, copd on 24/7 oxygen who presented to the ER wtih c/o abdominal pain and was found to have an incarcerated ventral hernia. Her post operative course has been complicated by delerium and hypercarbic respiratory failure requiring transfer to the ICU 09/17 now with improvement. - Patient Problems (1) Acute hypercapnic respiratory failure Current Visit: Yes Status: Acute Code(s): J96.02 - ACUTE RESPIRATORY FAILURE WITH HYPERCAPNIA SNOMED Code(s): 808171622 Comment: On the AM of 09/17/18 the patient was noted to have a change in mental status. Her ABG showed an elevated pCO2 of 76. She was not on her CPAP at that time. She was transferred to the ICU for BiPAP and has subsequently improved. She will continue to use CPAP at night. Minimize IV pain medication which may have contributed. (2) Incarcerated ventral hernia Current Visit: Yes Status: Acute Code(s): K43.6 - OTHER AND UNSP VENTRAL HERNIA WITH OBSTRUCTION, W/O GANGRENE SNOMED Code(s): 610900079 Comment: S/P repair on 09/11/18. Management per surgery. (3) Lactic acidosis Current Visit: Yes Status: Acute Code(s): E87.2 - ACIDOSIS SNOMED Code(s) : 99749892 Comment: I am most suspicious the lactic acidosis present on admission was secondary to the incarcerated ventral hernia. Remove this as an adverse reaction. (4) Type II diabetes mellitus Current Visit: Yes Status: Acute Comment: The patient's sugars have been under fair control on just sliding scale regular insulin. I do not think the lactic acidosis on admission was secondary to metformin use. I am more suspicious the lactic acidosis was secondary to having an incarcerated hernia and being acutely ill. (5) COPD (chronic obstructive pulmonary disease) Current Visit: Yes Status: Acute Code(s): J44.9 - CHRONIC OBSTRUCTIVE PULMONARY DISEASE, UNSPECIFIED SNOMED Code(s): 40907713 Comment: Pt has chronic hypoxic respiratory failure secondary to COPD. She uses 2L O2 continuously. Stop dulera and spiriva as pt is minimally symptomatic and at low risk for exacerbation. Will continue prn albuterol for episodes of dyspnea. (6) THAO (obstructive sleep apnea) Current Visit: Yes Status: Acute Code(s): G47.33 - OBSTRUCTIVE SLEEP APNEA ( ADULT) (PEDIATRIC) SNOMED Code(s): 69292780 Comment: Continue CPAP. (7) Morbid obesity Current Visit: Yes Status: Acute Code(s): E66.01 - MORBID (SEVERE) OBESITY DUE TO EXCESS CALORIES SNOMED Code(s): 857416736 Comment: Diagnosis noted. (8) DVT prophylaxis Current Visit: Yes Status: Acute Code(s): BYQ6859 - SNOMED Code(s): 260236353 Comment: SQ heparin (9) Full code status Current Visit: Yes Status: Acute Code(s): Z78.9 - OTHER SPECIFIED HEALTH STATUS SNOMED Code(s): 958428611 Status and Disposition: .
[2018-09-19] MEDS: Furosemide TAB* 20 MG PO SCH (09:54)
[2018-09-19] MEDS: Insulin LISPRO* 1 UNITS UNIT SUBCUT SCH ×3 (12:55→21:44)
[2018-09-20] MEDS: Acetaminophen TAB* 325 MG PO PRN ×2 (05:39→09:52)
[2018-09-20] MEDS: Heparin VIAL(*) 5000 UNITS/ML VIAL (FIVE THOUSAND) SUBCUT SCH ×2 (05:39→14:04)
[2018-09-20 05:40] LABS: Hematocrit 36 % (35-47); Hemoglobin 11.9 g/dl (12.0-16.0); Mean Corpuscular HGB Conc 33 g/dl (31-36); Mean Corpuscular Hemoglobin 28 pg (27-31); Mean Corpuscular Volume 85 fL (80-97); Mean Platelet Volume 7.8 fL (7.4-10.4); Platelet Count 210 10^3/ul (150-450); Red Blood Count 4.27 10^6/ul (4.00-5.40); Red Cell Distribution Width 15 % (10.5-15); White Blood Count 5.9 10^3/ul (3.5-10.8)
[2018-09-20 05:57] LABS: BUN/Creatinine Ratio 27.8 (8-20); Calcium 9.3 mg/dL (8.6-10.3); EGFR Non-African American 56.3 (>60); Potassium 3.8 mmol/L (3.5-5.0)
--- NOTE | 2018-09-20 06:28 | PN ---
Progress Note - Progress Note Date of Service: 09/20/18 Note: Paged for persistent tachycardia - Will order EKG
[2018-09-20] MEDS: FLUoxetine CAP* 20 MG PO SCH (08:09)
[2018-09-20] MEDS: Furosemide TAB* 20 MG PO SCH (08:09)
[2018-09-20] MEDS: Nystatin TOP POWDER* 15 GM BTL TOPICAL SCH ×2 (08:14→14:09)
[2018-09-20] MEDS: Insulin LISPRO* 1 UNITS UNIT SUBCUT SCH ×2 (09:51→14:06)
--- NOTE | 2018-09-20 10:26 | PN ---
Progress Note - Progress Note Date of Service: 09/20/18 Note: S/P Ventral hernia repair Afeb Feels well Min pain Hugh po's No N/V Abd soft, non-tender, Incis clean Disch when medically able F/U surg office 5-10 days
[2018-09-20 14:40] VITALS: BP 136/40
--- NOTE | 2018-09-21 01:04 | DS ---
CC: Dr. Wilson * DISCHARGE SUMMARY: DATE OF ADMISSION: 09/12/18 DATE OF DISCHARGE: 09/20/18 PRIMARY CARE PROVIDER: Dr. Wilson SURGEON: Dr. Fitzpatrick. PRINCIPAL DIAGNOSES: 1. Incarcerated ventral hernia. 2. Acute hypercapnic respiratory failure - resolved. 3. Lactic acidosis - resolved. SECONDARY DIAGNOSES: 1. Type 2 diabetes. 2. COPD. 3. JUNIOR. 4. Morbid obesity. DISCHARGE MEDICATIONS: 1. Fluoxetine 40 mg p.o. daily. 2. Bydureon 2 mg subcutaneous, weekly on Sundays. 3. Vitamin D 1000 units p.o. daily. 4. Albuterol 2 puffs inhaled q.4 hours p.r.n. shortness of breath. 5. Tylenol 325 mg p.o. q.4 hours p.r.n. pain. 6. Acarbose 100 mg p.o. t.i.d. 7. Metformin 1000 mg p.o. q. a.m.; 1500 mg p.o. q. p.m. 8. Multivitamin 1 tab p.o. daily. 9. Xyzal 5 mg p.o. daily. 10. Lasix 20 mg p.o. daily. 11. Percocet 5/325 one tab p.o. q.4 hours p.r.n. pain. HOSPITAL COURSE: Ms. Menendez is a 73-year-old female who had a long-standing history of ventral hernia who presented to the emergency room on 09/11/18 with complaints of abdominal pain, nausea and vomiting. The patient was found to have an incarcerated ventral hernia. The patient was taken to the OR on the very late evening of 09/11/18. The patient ultimately had an open repair of an incarcerated ventral hernia with mesh. There was slight purple discoloration of the bowel; however, once the incarcerated hernia was released, the bowel pinked up. The patient was sent to the ICU from the OR. The patient has done incredibly well from a surgical stand point. Her diet has been advanced and she is tolerating this without difficulty. Her bowels are moving. She was constipated and required milk of magnesia and had frequent loose stools on the day prior to discharge, but has no issues at this point. During the course of the hospitalization, the patient did develop an episode of acute hypercarbic respiratory failure. The patient had not been using her BiPAP. She went to the ICU for BiPAP treatment. She was encephalopathic with this and bit a nurse. Her mental status has since recovered. She is now stable on her home 2L of oxygen. On admission, the patient also had a moderate lactic acidosis. The lactic acid level peaked at 4.0. It has since normalized. There was initial concern that this may have been secondary to metformin use. However, my suspicion is that the lactic acidosis in fact related to the incarcerated hernia and being acutely ill and not the metformin. Metformin was temporarily added to her adverse reaction list; however, this has subsequently been removed. The patient will need to have close monitoring of her tolerance of the metformin; however, she is being discharged home back on metformin. In terms of her chronic medical conditions including her type 2 diabetes, JUNIOR and COPD, she has been maintained on her usual home medication regimen. On the day of discharge, the patient is awake, alert and oriented sitting in a chair in no acute distress. She states that she feels incredibly well. There was concern for tachycardia overnight; however, when the EKG was obtained the patient was in fact not tachycardic. Her cardiac exam reveals normal S1 and S2 with a regular rate rhythm. She has no lower extremity edema. Her lungs are clear. Her abdomen is soft, nontender, nondistended. The abdominal incision is stapled shut. There is slight erythema at the incision, but no concerning signs for infection and no drainage. The patient is anxious to be discharged home. FOLLOWUP CONCERNS: The patient is being discharged home today, 09/20/18. ACTIVITY LEVEL: As tolerated. CONDITION ON DISCHARGE: Stable. The patient has been instructed to follow up with Dr. Fitzpatrick on 09/29/18 at 10:30 a.m.; with Dr. Wilson in the next 4 to 7 days. TIME SPENT: Forty minutes were spent on discharging this patient. [id number]/[facility] #: [id number] TOMAS
== END 2018-09-20 15:30 | disposition home or self-care (01) | DRG 353 ==
LOC: ED 18:26 → OR 22:50 → ICU 09-12 01:11 → MEDTELE 09-15 12:03 → ICU 09-17 08:04 → SSU 09-18 12:15
PROVIDERS: ADMIT Surgery; ATTEND Hospitalist
PROC: 0WUF0JZ Supplement Abdominal Wall with Synthetic Substitute, Open Approach (ICD-10-PCS; principal; 2018-09-11 22:32)
PROC: 5A09357 Assistance with Respiratory Ventilation, Less than 24 Consecutive Hours, Continuous Positive Airway Pressure (ICD-10-PCS; 2018-09-12)
DX: K43.6 Other and unspecified ventral hernia with obstruction, without gangrene (principal); J96.01 Acute respiratory failure with hypoxia; J96.02 Acute respiratory failure with hypercapnia; G92 Toxic encephalopathy; E87.2 Acidosis; Z68.43 Body mass index [BMI] 50.0-59.9, adult; J44.9 Chronic obstructive pulmonary disease, unspecified; E66.01 Morbid (severe) obesity due to excess calories; F41.9 Anxiety disorder, unspecified; D64.9 Anemia, unspecified; I50.9 Heart failure, unspecified; K80.20 Calculus of gallbladder without cholecystitis without obstruction; K42.9 Umbilical hernia without obstruction or gangrene; E78.00 Pure hypercholesterolemia, unspecified; J45.909 Unspecified asthma, uncomplicated; M17.11 Unilateral primary osteoarthritis, right knee; E11.36 Type 2 diabetes mellitus with diabetic cataract; Z96.1 Presence of intraocular lens; K59.00 Constipation, unspecified; F32.9 Major depressive disorder, single episode, unspecified; R40.2142 Coma scale, eyes open, spontaneous, at arrival to emergency department; R40.2362 Coma scale, best motor response, obeys commands, at arrival to emergency department; R40.2252 Coma scale, best verbal response, oriented, at arrival to emergency department; G47.33 Obstructive sleep apnea (adult) (pediatric); Z88.5 Allergy status to narcotic agent; Z88.1 Allergy status to other antibiotic agents; Z91.041 Radiographic dye allergy status; Z99.81 Dependence on supplemental oxygen; Z87.01 Personal history of pneumonia (recurrent); Z98.42 Cataract extraction status, left eye; Z86.14 Personal history of Methicillin resistant Staphylococcus aureus infection; Z79.84 Long term (current) use of oral hypoglycemic drugs; Z79.52 Long term (current) use of systemic steroids
CPT/HCPCS: 36415; 36600; 71045; 74176; 76705; 80048; 80053; 81003; 81015; 82803; 83036; 83605; 83690; 83735; 83880; 84100; 84484; 85025; 85027; 86140; 87040; 87086; 87641; 93005; 93306; 94640; 94660; 99285; A9270-GY; C1781; C8929; G8978-GP-CL; G8979-GP-CI; J0330; J0690; J0780; J1170; J1644; J1940; J2060; J2250; J2270; J2405; J2543; J2704; J2710; J3010; J3475

== ENCOUNTER 2021-06-23 13:12 | Observation (INO) ==
[2021-06-23 13:52] LABS: ABS Eosinophils 0.3 10^3/ul (0-0.6); ABS Lymphocytes 0.9 10^3/ul (1.0-4.8); ABS Monocytes 0.2 10^3/ul (0-0.8); ABS Neutrophils 1.2 10^3/ul (1.5-7.7); Eosinophil % 9.6 %; Hematocrit 32 % (35-47); Hemoglobin 10.4 g/dL (12.0-16.0); Lymphocyte % 35.4 %; Mean Corpuscular HGB Conc 33 g/dL (31-36); Mean Corpuscular Hemoglobin 29 pg (27-31); Mean Corpuscular Volume 88 fL (80-97); Mean Platelet Volume 8.8 fL (7.4-10.4); Platelet Count 143 10^3/uL (150-450); Red Blood Count 3.64 10^6 /uL (3.70-4.87); Red Cell Distribution Width 16 % (10-15); White Blood Count 2.6 10^3/uL (3.5-10.8)
[2021-06-23 14:04] LABS: Albumin/Globulin Ratio 1.4 (1-3); C Reactive Protein 11.06 mg/L (<8.01); Calcium 9.4 mg/dL (8.6-10.3); Globulin 2.9 g/dL (2-4); Potassium 4.4 mmol/L (3.5-5.0); Total Bilirubin 0.4 mg/dL (0.2-1.0); Total Protein 6.9 g/dL (6.4-8.9)
[2021-06-23 14:05] LABS: Troponin I 0.01 ng/mL (<0.03)
[2021-06-23] MEDS ORDERED: methylPREDNISolone 125 mg 2 ML VIAL IV ONE (14:43)
[2021-06-23 18:01] LABS: Rapid COVID-19 Molecular Undetected (Undetected)
[2021-06-23] MEDS ORDERED: Dextrose 50% Syringe 50 ml 25 GM/50 ML SYRINGE IV PUSH PRN (18:20)
[2021-06-23] MEDS: Insulin GLARGINE 100 un/ml 10 ml VIAL SUBCUT SCH (21:17)
[2021-06-23] MEDS: Enoxaparin 40 MG/0.4 ML SYR SUBCUT SCH (21:18)
[2021-06-23 21:53] LABS: TSH Ultra Thyroid Stim Horm 2.72 mcIU/mL (0.34-5.60)
[2021-06-23 21:59] LABS: Magnesium 1.7 mg/dL (1.9-2.7); Phosphorus 4.1 mg/dL (2.5-5.0)
[2021-06-23] MEDS: Furosemide 40 mg/4 ml IV VIAL IV SCH (22:16)
[2021-06-23 23:03] LABS: Urine Appearance Cloudy; Urine Bilirubin Negative (Negative); Urine Blood Negative (Negative); Urine Color Yellow; Urine Glucose 2+(150 mg/dL) (Negative); Urine Ketones Trace (Negative); Urine Nitrite Negative (Negative); Urine Protein 2+(100 mg/dL) (Negative); Urine Specific Gravity 1.017 (1.002-1.030); Urine Urobilinogen Negative (Negative)
[2021-06-23 23:07] LABS: Urine Bacteria Absent (Absent); Urine Red Blood Cell Trace(0-2/hpf) (Absent); Urine Squamous Epithelial Cell Present (Absent); Urine White Blood Cell Trace(0-5/hpf) (Absent)
[2021-06-23] MEDS ORDERED: Magnesium Sulfate IV 1GM/100ML 1 GM/100 ML BAG IV ONE (23:45)
[2021-06-24 06:32] LABS: ALT 19 U/L (7-52); AST 20 U/L (13-39); Albumin 3.9 g/dL (3.2-5.2); Albumin/Globulin Ratio 1.3 (1-3); Alkaline Phosphatase 65 U/L (35-149); Anion Gap 7 mmol/L (2-11); Blood Urea Nitrogen 37 mg/dL (6-24); CO2 Carbon Dioxide 30 mmol/L (22-32); Calcium 9.4 mg/dL (8.6-10.3); Chloride 102 mmol/L (101-111); Globulin 2.9 g/dL (2-4); Glucose 190 mg/dL (70-100); Sodium 139 mmol/L (135-145); Total Protein 6.8 g/dL (6.4-8.9)
[2021-06-24 06:34] LABS: % Iron Saturation 8 % (15-55); Iron 28 ug/dL (50-212); Total Iron Binding Capacity 349 mcg/dL (250-450); Transferrin 249 mg/dL (203-362); Unsaturated Iron Binding < 334 ug/dL
[2021-06-24 06:35] LABS: ABS Lymphocytes 0.5 10^3/ul (1.0-4.8); ABS Monocytes 0.1 10^3/ul (0-0.8); ABS Neutrophils 2.1 10^3/ul (1.5-7.7); Eosinophil % 0.1 %; Hematocrit 33 % (35-47); Hemoglobin 10.9 g/dL (12.0-16.0); Lymphocyte % 17.6 %; Mean Corpuscular HGB Conc 34 g/dL (31-36); Mean Corpuscular Hemoglobin 29 pg (27-31); Mean Corpuscular Volume 87 fL (80-97); Nucleated Red Blood Cells % 0.1; Platelet Count 141 10^3/uL (150-450); Red Blood Count 3.73 10^6 /uL (3.70-4.87); Red Cell Distribution Width 16 % (10-15); White Blood Count 2.7 10^3/uL (3.5-10.8)
[2021-06-24 06:51] LABS: Ferritin 42.5 ng/mL (11-307)
[2021-06-24] MEDS: SPIRIVA Respimat (tiotropium) 2.5 mcg/inh Inhaler INH SCH (08:31)
[2021-06-24] MEDS: Cholecalciferol (VIT D3) 1,000 unit TAB PO SCH (08:57)
[2021-06-24] MEDS: Furosemide 40 mg/4 ml IV VIAL IV SCH (09:11)
[2021-06-24 11:46] LABS: Folate > 20.00 ng/mL (5.90-24.80)
[2021-06-24 11:47] LABS: Vitamin B12 410 pg/mL (180-914)
[2021-06-24] MEDS ORDERED: Iron Sucrose 200 MG in NS 0.9% 100 ml BAG 100 ML IVPB ONE (12:00)
[2021-06-24] MEDS: Enoxaparin 40 MG/0.4 ML SYR SUBCUT SCH (20:29)
[2021-06-24] MEDS: Insulin GLARGINE 100 un/ml 10 ml VIAL SUBCUT SCH (20:29)
[2021-06-25 05:02] LABS: ABS Eosinophils 0.1 10^3/ul (0-0.6); ABS Lymphocytes 0.8 10^3/ul (1.0-4.8); ABS Monocytes 0.3 10^3/ul (0-0.8); ABS Neutrophils 1.9 10^3/ul (1.5-7.7); Eosinophil % 4.1 %; Hematocrit 33 % (35-47); Hemoglobin 10.7 g/dL (12.0-16.0); Lymphocyte % 26.5 %; Mean Corpuscular HGB Conc 33 g/dL (31-36); Mean Corpuscular Hemoglobin 28 pg (27-31); Mean Corpuscular Volume 87 fL (80-97); Mean Platelet Volume 8.3 fL (7.4-10.4); Platelet Count 157 10^3/uL (150-450); Red Blood Count 3.77 10^6 /uL (3.70-4.87); Red Cell Distribution Width 16 % (10-15); White Blood Count 3.1 10^3/uL (3.5-10.8)
[2021-06-25 05:20] LABS: Calcium 9.2 mg/dL (8.6-10.3); Magnesium 1.8 mg/dL (1.9-2.7); Potassium 4.1 mmol/L (3.5-5.0)
[2021-06-25] MEDS ORDERED: Magnesium Sulfate 2 gm BAG 2 GM/50 ML BAG IVPB ONE (06:05)
[2021-06-25] MEDS: SPIRIVA Respimat (tiotropium) 2.5 mcg/inh Inhaler INH SCH (07:06)
[2021-06-25] MEDS: Furosemide 40 mg/4 ml IV VIAL IV SCH (07:41)
[2021-06-25] MEDS: Cholecalciferol (VIT D3) 1,000 unit TAB PO SCH (07:46)
[2021-06-25] MEDS: Albuterol HFA INHALER 8 gm MDI INH PRN ×2 (15:06→21:20)
[2021-06-25] MEDS: Insulin GLARGINE 100 un/ml 10 ml VIAL SUBCUT SCH (20:10)
[2021-06-25] MEDS: Enoxaparin 40 MG/0.4 ML SYR SUBCUT SCH (20:10)
[2021-06-25] MEDS ORDERED: Al Hydrox/Mg Hydrox/Simet LIQ 30 ML UDC PO ONE (22:24)
[2021-06-26 06:11] LABS: ABS Eosinophils 0.2 10^3/ul (0-0.6); ABS Lymphocytes 0.9 10^3/ul (1.0-4.8); ABS Monocytes 0.2 10^3/ul (0-0.8); ABS Neutrophils 1.3 10^3/ul (1.5-7.7); Eosinophil % 6.9 %; Hematocrit 34 % (35-47); Hemoglobin 11.3 g/dL (12.0-16.0); Lymphocyte % 33.7 %; Mean Corpuscular HGB Conc 33 g/dL (31-36); Mean Corpuscular Hemoglobin 29 pg (27-31); Mean Corpuscular Volume 88 fL (80-97); Mean Platelet Volume 8.5 fL (7.4-10.4); Nucleated Red Blood Cells % 0.1; Platelet Count 152 10^3/uL (150-450); Red Blood Count 3.87 10^6 /uL (3.70-4.87); Red Cell Distribution Width 16 % (10-15); White Blood Count 2.6 10^3/uL (3.5-10.8)
[2021-06-26 06:26] LABS: Calcium 9.4 mg/dL (8.6-10.3); Potassium 4.2 mmol/L (3.5-5.0)
[2021-06-26] MEDS: Albuterol HFA INHALER 8 gm MDI INH PRN (07:44)
[2021-06-26] MEDS: SPIRIVA Respimat (tiotropium) 2.5 mcg/inh Inhaler INH SCH (07:44)
[2021-06-26] MEDS: Cholecalciferol (VIT D3) 1,000 unit TAB PO SCH (09:01)
[2021-06-26] MEDS: Furosemide 40 mg/4 ml IV VIAL IV SCH (09:02)
[2021-06-26 12:17] VITALS: BP 139/54
== END 2021-06-26 15:08 | disposition home or self-care (01) | DRG 291 ==
LOC: ED 13:12 → MEDTELE 18:08 → INTOOBSV 18:08 → SUATTDRO 18:08 → MEDTELE 19:34
PROVIDERS: ADMIT Internal Medicine; ATTEND Hospitalist